=== PATIENT | female | born 1945 | race Caucasian/White ===

== ENCOUNTER → 2016-05-16 | Outpatient (CLI) | payer MEDICARE | END | disposition home or self-care (01) | LOC: LABWHC1 14:18 | PROVIDERS: ATTEND Ophthalmology | DX: N19 Unspecified kidney failure (principal) | CPT/HCPCS: 36415; 82565; 84520 ==

== ENCOUNTER → 2016-05-25 | Outpatient (CLI) | payer MEDICARE ==
--- NOTE | 2016-05-25 08:45 | MR ---
MR brain with and without contrast HISTORY: Visual field defect, tremors Multiplanar multisequence and postcontrast images obtained through the brain small [id number] imag ing through the sella turcica following 20 cc MultiHance IV. No comparisons There are inflammatory change, possible mucus retention cyst within the maxillary sinus. The orbits s how symmetric appearance. The pituitary is not enlarged. No abnormal enhancement is evident. Scattere d hyperintensities present within deep white matter, periventricular region mother approximately 5-10 lesions. Cortical atrophy is likely age-related. There is no hemorrhage or hydrocephalus. There is n o restricted diffusion to suggest subacute ischemia. Corpus callosum, cervical medullary junction, ce rebellopontine angles are normal. IMPRESSION: Nonspecific white matter demyelination may be due to chronic small vessel ischemia. Age-r elated atrophy. Sinus disease. No abnormality evident to account for patient's symptoms.
== END | disposition home or self-care (01) ==
LOC: RADMRIMAIN 06:34
PROVIDERS: ATTEND Ophthalmology
DX: R90.82 White matter disease, unspecified (principal); G31.1 Senile degeneration of brain, not elsewhere classified
CPT/HCPCS: 70553; A9577

== ENCOUNTER → 2016-06-19 | Outpatient (CLI) | payer MEDICARE ==
[2016-06-19 14:24] LABS: Basophils % (A) 1 %; CH 31.5; CHCM 35.5; Eosinophils # (A) 0.2 k/uL (0-0.7); Eosinophils % (A) 4 %; HCT 38.7 % (34.0-46.0); HDW 2.63; HGB 13.5 gm/dL (11.4-16.0); Luc # (Auto) 0.11; Luc % (Auto) 3; Lymphocytes # (A) 0.6 k/uL (1.0-4.8); Lymphocytes % (A) 15 %; MCH 31.2 pg (25.0-35.0); Mean Platelet Volume 6.7; Monocytes # (A) 0.3 k/uL (0-1.0); Monocytes % (A) 9 %; Neutrophils # (A) 2.5 k/uL (1.3-7.7); Neutrophils % (A) 68 %; RBC 4.35 m/uL (3.80-5.40); RDW 13.5 % (11.5-15.5); WBC 3.7 k/uL (3.8-10.6); WBC (Perox) 3.55
[2016-06-19 14:39] LABS: ALT 27 U/L (9-52); AST 12 U/L (14-36); Alkaline Phosphatase 89 U/L (38-126); Anion Gap 12 mmol/L; Blood Urea Nitrogen 20 mg/dL (7-17); Calcium 9.5 mg/dL (8.4-10.2); Carbon Dioxide 25 mmol/L (22-30); Chloride 101 mmol/L (98-107); Glucose 93 mg/dL (74-99); Non-African American GFR(MDRD) >60 (>60 ml/min/1.73 sqM); Rheumatoid Factor, Qnt <9 IU/mL (<12); Sodium 138 mmol/L (137-145); Total Bilirubin 0.5 mg/dL (0.2-1.3); Total Protein 7.2 g/dL (6.3-8.2)
[2016-06-19 15:06] LABS: Erythrocyte Sedimentation Rate 22 mm/hr (0-20)
[2016-06-19 20:07] LABS: ANA w/Reflex to Titer NEGATIVE (NEGATIVE)
[2016-06-19 20:55] LABS: Treponemal Ab Non-Reactive (Non-Reactive)
[2016-06-20 05:34] LABS: Toxoplasma Antibody (IgG) 3.4 IU/mL (<7.2)
[2016-06-20 05:35] LABS: Lyme Antibodies Total(IgG/IgM) 0.28 (<0.90)
[2016-06-22 16:33] LABS: Toxocara Antibodies NEGATIVE
== END | disposition home or self-care (01) ==
LOC: LABWHC1 13:53
PROVIDERS: ATTEND Ophthalmology
DX: H30.0 Focal chorioretinal inflammation (principal); H35.3132 Nonexudative age-related macular degeneration, bilateral, intermediate dry stage
CPT/HCPCS: 36415; 80053; 85025; 85652; 86038; 86140; 86431; 86480; 86618; 86682; 86777; 86778; 86780

== ENCOUNTER → 2016-06-22 | Outpatient (CLI) | payer MEDICARE ==
[2016-06-22 15:31] LABS: Basophils % (A) 1 %; CH 31.1; Eosinophils # (A) 0.2 k/uL (0-0.7); Eosinophils % (A) 5 %; HCT 40.1 % (34.0-46.0); HGB 13.3 gm/dL (11.4-16.0); Luc # (Auto) 0.11; Luc % (Auto) 3; Lymphocytes # (A) 0.6 k/uL (1.0-4.8); Lymphocytes % (A) 16 %; MCH 30.5 pg (25.0-35.0); MCHC 33.2 g/dL (31.0-37.0); MCV 91.8 fL (80.0-100.0); Monocytes # (A) 0.4 k/uL (0-1.0); Monocytes % (A) 9 %; Neutrophils # (A) 2.6 k/uL (1.3-7.7); Neutrophils % (A) 66 %; RBC 4.37 m/uL (3.80-5.40); RDW 13.7 % (11.5-15.5); WBC 3.9 k/uL (3.8-10.6); WBC (Perox) 4.02
[2016-06-22 15:50] LABS: C Reactive Protein 5.5 mg/L (<10.0)
[2016-06-22 16:17] LABS: Erythrocyte Sedimentation Rate 25 mm/hr (0-20)
[2016-06-22 20:07] LABS: ANA w/Reflex to Titer NEGATIVE (NEGATIVE)
== END | disposition home or self-care (01) ==
LOC: LABWHC1 15:11
PROVIDERS: ATTEND Psychiatry & Neurology Neurology
DX: H54.7 Unspecified visual loss (principal); R25.1 Tremor, unspecified
CPT/HCPCS: 36415; 82607; 82746; 85025; 85652; 86038; 86140; 86225

== ENCOUNTER → 2018-02-01 | Outpatient (CLI) | payer MEDICARE ==
--- NOTE | 2018-02-01 13:27 | US ---
EXAMINATION TYPE: US venous doppler duplex LE RT DATE OF EXAM: 02/01/2018 1:14 PM COMPARISON: NONE CLINICAL HISTORY: Right Leg Swelling R22.41. SIDE PERFORMED: Right TECHNIQUE: The lower extremity deep venous system is examined utilizing real time linear array sonog aleyda with graded compression, doppler sonography and color-flow sonography. VESSELS IMAGED: External Iliac Vein (EIV) Common Femoral Vein Deep Femoral Vein Greater Saphenous Vein * Femoral Vein Popliteal Vein Small Saphenous Vein * Proximal Calf Veins (* superficial vessels) Grayscale, color doppler, spectral doppler imaging performed of the deep veins of the right lower ext remity. There is normal flow, compressibility, vascular waveforms. Right Leg: Negative for DVT Preliminary results give to Alvino at Dr. Norton office. IMPRESSION: No sonographic evidence of deep venous thrombosis within the right lower extremity.
== END | disposition home or self-care (01) ==
LOC: RADUSWWP 12:42
PROVIDERS: ATTEND Family Medicine
DX: R22.41 Localized swelling, mass and lump, right lower limb (principal)

== ENCOUNTER → 2019-03-14 | Outpatient (CLI) | payer MEDICARE ==
--- NOTE | 2019-03-16 17:34 | XR ---
EXAMINATION TYPE: XR forearm 2 views LT, XR wrist complete 4 views LT DATE OF EXAM: 03/14/2019 COMPARISON: NONE HISTORY: 73-year-old female left wrist pain after recent fall FINDINGS: Forearm: There is elevation of the anterior fat pad of the elbow. No discrete fracture seen at the elbow on th tristin 2 views of the forearm. No acute fracture apparent of the radial or ulnar shaft. Wrist: Slight negative ulnar variance. TFC and some synovial calcifications are noted. Moderate to severe de generative change first CMC and triscaphe joints. There may be some ulnar-sided soft tissue swelling. No acute fracture, subluxation, dislocation is seen. IMPRESSION: 1. Forearm: Elbow joint effusion which may be an indicator of an occult underlying injury. Correlate for any localizing pain at the elbow. Dedicated views as indicated for further assessment. 2. 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 Some TFC calcifications maybe idiopathic or could reflect CPPD. Soft tissue swelling without acute osseous abnormality seen.
== END | disposition home or self-care (01) ==
LOC: RADXRMAIN 15:52
PROVIDERS: ATTEND Family Medicine
DX: M19.032 Primary osteoarthritis, left wrist (principal); M25.422 Effusion, left elbow; M79.602 Pain in left arm

== ENCOUNTER → 2019-12-18 | Outpatient (CLI) | payer MEDICARE | END | disposition home or self-care (01) | LOC: LABWHC1 13:12 | PROVIDERS: ATTEND Ophthalmology | DX: M31.6 Other giant cell arteritis (principal) | CPT/HCPCS: 36415; 85652; 86140 ==

== ENCOUNTER → 2020-11-21 | Outpatient (CLI) | payer MEDICARE ==
--- NOTE | 2020-11-22 03:35 | MR ---
EXAMINATION TYPE: MR lumbar spine wo con DATE OF EXAM: 11/21/2020 COMPARISON: None HISTORY: No prior, low back pain, limited mobility, frequent falls Images obtained from T12 to S3 vertebra without contrast. The lumbar vertebra have fairly normal alignment. Disc spaces are fairly normal. There is no compress ion fracture. There is a few millimeter anterior subluxation of L4 in relation to L5. There is no molly dence of focal bone destruction. There is mild hypertrophic facet arthropathy throughout the lumbar s pine. The lumbar neural foramina are fairly well-maintained. There is no lumbar paraspinal mass. The sacroiliac joints appear intact. IMPRESSION: There is a minor degenerative first-degree L4-5 spondylolisthesis. Mild multilevel degenerative disc changes. No fracture seen. No significant spinal stenosis. No fracture.
== END | disposition home or self-care (01) ==
LOC: RADMRIMAIN 13:49
PROVIDERS: ATTEND Family Medicine
DX: M43.16 Spondylolisthesis, lumbar region (principal); M47.816 Spondylosis without myelopathy or radiculopathy, lumbar region; R29.6 Repeated falls
CPT/HCPCS: 72148

== ENCOUNTER → 2022-07-06 | Outpatient (CLI) | payer MEDICARE ==
--- NOTE | 2022-07-06 19:49 | XR ---
EXAMINATION TYPE: XR cervical spine 4 views limited DATE OF EXAM: 07/06/2022 Comparison: None Clinical History: 76-year-old female M54.2 cervicalgia Findings: Degenerative change at the C1 dens articulation. No predental space widening or prevertebral soft tis landen swelling. Mild multilevel degenerative disc disease. Alignment appears maintained on the swimmer' s view. Multilevel hypertrophic facet and uncovertebral joint arthropathy is present. Impression: Multilevel facet and uncovertebral joint arthropathy. Mild multilevel disc disease. No malalignment s een.
== END | disposition home or self-care (01) ==
LOC: RADXRMAIN 13:29
PROVIDERS: ATTEND Family Medicine
DX: M50.30 Other cervical disc degeneration, unspecified cervical region (principal); M47.812 Spondylosis without myelopathy or radiculopathy, cervical region
CPT/HCPCS: 72040

== ENCOUNTER 2022-07-11 15:24 | Emergency (ER) | payer MEDICARE ==
--- NOTE | 2022-07-11 16:15 | ED ---
Fall HPI - General Chief Complaint: Fall Stated Complaint: fall Time Seen by Provider: 07/11/22 15:38 Source: patient, EMS Mode of arrival: EMS - History of Present Illness Initial Comments: This patient is a 76-year-old woman who arrives to have evaluation after she had a fall. The patient states that she was attempting to leave her home. She has a porch that has approximate 4 steps down to the ground. She states that she usually uses a walker to walk but does not use it to go downstairs. She lost balance and pitched down the stairs. She states she was not able to get up and was on the grounds between 1 and 2 hours. She complains of pain to the mid and lower back. She does not believe she lost consciousness. The patient was found to have fever on scene by EMS. She does acknowledge having a little bit of cough with clear sputum. She states that her daughter recently had similar and was given course of antibiotic and steroid, which improved the symptoms. MD Complaint: fall Onset/Timin -: hour(s) Fall From: down stairs (#) (4) When Fall Occurred: 1-3 hours REVENUE LIAISON Fall Witnessed: no Place Fall Occurred: home Loss of Consciousness: none Prolonged Down Time?: hour(s) (2) Symptoms Prior to Fall: none Location: back Severity: moderate Quality: aching Context: tripped/slipped - Related Data Home Medications Medication Instructions Recorded Confirmed Atenolol/Chlorthalidone [Tenoretic 1 tab PO DAILY 01/19/14 07/11/22 100 Tablet] Gabapentin [Neurontin] 800 mg PO QID 01/19/14 07/11/22 Levothyroxine Sodium [Levoxyl] 175 mcg PO DAILY 01/19/14 07/11/22 Primidone [Mysoline] 50 mg PO DIRECTED 01/19/14 07/11/22 Desvenlafaxine [Pristiq ER] 100 mg PO DAILY 07/11/22 07/11/22 Famotidine [Pepcid] 20 mg PO DAILY 07/11/22 07/11/22 Folic Acid 1 mg PO DAILY 07/11/22 07/11/22 Furosemide [Lasix] 20 mg PO DIRECTED 07/11/22 07/11/22 Pravastatin Sodium [Pravachol] 20 mg PO HS 07/11/22 07/11/22 Topiramate [Topamax] 50 mg PO TID 07/11/22 07/11/22 amLODIPine [Norvasc] 2.5 mg PO DIRECTED 07/11/22 07/11/22 oxyCODONE HCL [oxyCODONE HCL (IR)] 15 mg PO TID 07/11/22 07/11/22 oxyCODONE HCL [oxyCODONE HCL (IR)] 30 mg PO BID PRN 07/11/22 07/11/22 Previous Rx's Medication Instructions Recorded Azithromycin [Zithromax] 0 mg PO DIRECTED #6 tab 07/11/22 predniSONE [Deltasone] 20 mg PO BID #8 tab 07/11/22 Allergies Allergy/AdvReac Type Severity Reaction Status Date / Time ibuprofen [From Motrin] Allergy Anaphylaxis Verified 07/11/22 15:37 pneumococcal vaccine Allergy Nausea & Verified 07/11/22 15:37 Vomiting Review of Systems ROS Statement: Those systems with pertinent positive or pertinent negative responses have been documented in the HPI. ROS Other: All systems not noted in ROS Statement are negative. Constitutional: Reports: weakness (Generalized) Eyes: Denies: vision change ENT: Denies: epistaxis Respiratory: Reports: cough. Denies: dyspnea, hemoptysis Cardiovascular: Denies: chest pain, palpitations, syncope Gastrointestinal: Denies: abdominal pain, vomiting, diarrhea Genitourinary: Denies: dysuria, hematuria Musculoskeletal: Reports: as per HPI, back pain. Denies: arthralgia Skin: Denies: rash Neurological: Denies: headache, weakness, numbness, confusion Past Medical History Past Medical History: Hypertension Additional Past Medical History / Comment(s): spinal stenosis, arthritis, essential tremors History of Any Multi-Drug Resistant Organisms: None Reported Past Surgical History: Adenoidectomy, Appendectomy, Hysterectomy, Tonsillectomy Additional Past Surgical History / Comment(s): bilateral hip replacement. bowel resection, Past Anesthesia/Blood Transfusion Reactions: No Reported Reaction Past Psychological History: No Psychological Hx Reported Past Alcohol Use History: Occasional Past Drug Use History: None Reported - Past Family History Mother Family Medical History: No Reported History General Exam General appearance: alert, in no apparent distress Head exam: Present: atraumatic, normocephalic Eye exam: Present: normal appearance. Absent: scleral icterus, conjunctival injection ENT exam: Present: normal oropharynx Neck exam: Present: normal inspection, other (Cervical collar). Absent: tenderness Respiratory exam: Present: normal lung sounds bilaterally. Absent: respiratory distress, wheezes, rales, rhonchi, stridor, chest wall tenderness, accessory muscle use Cardiovascular Exam: Present: regular rate, normal rhythm, normal heart sounds. Absent: systolic murmur, diastolic murmur, rubs, gallop GI/Abdominal exam: Present: soft. Absent: distended, tenderness, guarding, rebound, rigid, mass Extremities exam: Present: normal inspection, normal capillary refill. Absent: pedal edema, calf tenderness Back exam: Present: normal inspection, vertebral tenderness. Absent: CVA tenderness (R), CVA tenderness (L) Neurological exam: Present: alert, oriented X3. Absent: motor sensory deficit Skin exam: Present: warm, dry, normal color, abrasion (Right elbow). Absent: rash Course Vital Signs 07/11/22 07/11/22 15:26 18:55 Temperature 99.7 F H 99.5 F Pulse Rate 68 72 Respiratory 16 18 Rate Blood Pressure 115/62 148/78 O2 Sat by Pulse 92 L 95 Oximetry Medical Decision Making - Medical Decision Making This patient is 76-year-old woman here to have evaluation after she had fallen down 4 stairs. Patient also found to have fever here. The patient not found to have acute spine injury. She is feeling better and would like to go home. I explained that we were still attempting to localize for fever, she stated that she really didn't want to stay to provide urine/chest x-ray. She would like to go home with some treatment for the bronchitis symptoms that she has had. Emphasized that she must return should she not begin to show rapid improvement or if there is any worsening at all. We discussed appropriate further care and follow-up as well as return parameters. The patient did have computed tomography scan of the brain and C-spine that I interpreted as being negative for acute bony injury and no intracranial hemorrhage. The patient had CT of the thoracic and lumbar spine which I interpreted as being negative for acute fracture Was pt. sent in by a medical professional or institution (, PA, DISPERSION MIXER, urgent care, hospital, or snf...) When possible be specific @ -[No] Did you speak to anyone other than the patient for history (EMS, parent, family, police, friend...)? What history was obtained from this source @ -[No] Did you review nursing and triage notes (agree or disagree)? Why? @ -[I reviewed and agree with nursing and triage notes] Were old charts reviewed (outside hosp., previous admission, EMS record, old EKG, old radiological studies, urgent care reports/EKG's, snf records)? Report findings @ -[No old charts were reviewed] Differential Diagnosis (chest pain, altered mental status, abdominal pain women, abdominal pain men, vaginal bleeding, weakness, fever, dyspnea, syncope, headache, dizziness, GI bleed, back pain, seizure, CVA, palpatations, mental health, musculoskeletal)? @ -Differential Fever: Pneumonia, viral URI, endocarditis, myocarditis, pericarditis, otitis, sinusitis, peritonsillar Abscess, retropharyngeal Abscess, epiglottitis, peritonitis, appendicitis, Giselle cystitis, diverticulitis, hepatitis, colitis, UTI, PID, TOA, pyelonephritis, prostatitis, epididymitis, meningitis, encephalitis, pulmonary embolism, CVA, thyroid storm, pancreatitis, adrenal crisis, cavernous sinus thrombosis, this is not meant to be an all-inclusive list. Differential Back Pain: Strain, zoster, cauda equina syndrome, epidural abscess, vertebral osteomyelitis, discitis, fracture, subluxation, disc herniation, DJD, spinal stenosis, dissection, AAA, pancreatitis, peptic ulcer disease, pyelonephritis, kidney stone, this is not meant to be an all-inclusive list. EKG interpreted by me (3pts min.). @ -[As above] X-rays interpreted by me (1pt min.). @ -[None done] CT interpreted by me (1pt min.). @ -[As above U/S interpreted by me (1pt. min.). @ -[None done] What testing was considered but not performed or refused? (CT, X-rays, U/S, labs)? Why? @ -[None] What meds were considered but not given or refused? Why? @ -[None] Did you discuss the management of the patient with other professionals (professionals i.e. , PA, DISPERSION MIXER, lab, RT, psych nurse, manager social media, reliability specialist, teacher, aeronautical engineering officer, assistant case manager)? Give summary @ -[No] Was smoking cessation discussed for >3mins.? @ -[No] Was critical care preformed (if so, how long)? @ -[No] Were there social determinants of health that impacted care today? How? (Homelessness, low income, unemployed, alcoholism, drug addiction, transportation, low edu. Level, literacy, decrease access to med. care, [facility], rehab)? @ -[No] Was there de-escalation of care discussed even if they declined (Discuss DNR or withdrawal of care, Hospice)? DNR status @ -[No] What co-morbidities impacted this encounter? (DM, HTN, Smoking, COPD, CAD, Cancer, CVA, ARF, Chemo, Hep., AIDS, mental health diagnosis, sleep apnea, morbid obesity)? @ -[None] Was patient admitted / discharged? Hospital course, mention meds given and route, prescriptions, significant lab abnormalities, going to OR and other pertinent info. @ -[See above Undiagnosed new problem with uncertain prognosis? @ -[No] Drug Therapy requiring intensive monitoring for toxicity (Heparin, Nitro, Insulin, Cardizem)? @ -[No] Were any procedures done? @ -[No] Diagnosis/symptom? @ -[Acute fall Acute back pain Acute bronchitis Fever Acute, or Chronic, or Acute on Chronic? @ -[Acute Uncomplicated (without systemic symptoms) or Complicated (systemic symptoms)? @ -[Uncomplicated Side effects of treatment? @ -[No] Exacerbation, Progression, or Severe Exacerbation? @ -[No] Poses a threat to life or bodily function? How? (Chest pain, [place], [place], pneumonia, PE, COPD, DKA, ARF, appy, cholecystitis, CVA, Diverticulitis, Homicidal, Suicidal, threat to staff... and all critical care pts) @ -[Undetermined - Lab Data Result diagrams: 07/11/22 16:18 07/11/22 16:18 Lab Results 07/11/22 07/11/22 07/11/22 Range/Units 16:18 16:18 16:18 WBC 3.0 L (3.8-10.6) k/uL RBC 4.37 (3.80-5.40) m/uL Hgb 13.6 (11.4-16.0) gm/dL Hct 39.6 (34.0-46.0) % MCV 90.6 (80.0-100.0) fL MCH 31.2 (25.0-35.0) pg MCHC 34.4 (31.0-37.0) g/dL RDW 14.7 (11.5-15.5) % Plt Count 166 (150-450) k/uL MPV 7.5 Neutrophils % 78 % Lymphocytes % 10 % Monocytes % 7 % Eosinophils % 3 % Basophils % 0 % Neutrophils # 2.3 (1.3-7.7) k/uL Lymphocytes # 0.3 L (1.0-4.8) k/uL Monocytes # 0.2 (0-1.0) k/uL Eosinophils # 0.1 (0-0.7) k/uL Basophils # 0.0 (0-0.2) k/uL Sodium 136 L (137-145) mmol/L Potassium 3.5 (3.5-5.1) mmol/L Chloride 98 (98-107) mmol/L Carbon Dioxide 29 (22-30) mmol/L Anion Gap 9 mmol/L BUN 17 (7-17) mg/dL Creatinine 0.64 (0.52-1.04) mg/dL Est GFR (CKD-EPI)AfAm >90 (>60 ml/min/1.73 sqM) Est GFR (CKD-EPI)NonAf 87 (>60 ml/min/1.73 sqM) Glucose 105 H (74-99) mg/dL Calcium 8.4 (8.4-10.2) mg/dL Total Bilirubin 0.6 (0.2-1.3) mg/dL AST 22 (14-36) U/L ALT 19 (4-34) U/L Alkaline Phosphatase 82 (38-126) U/L Troponin I <0.012 (0.000-0.034) ng/mL Total Protein 6.7 (6.3-8.2) g/dL Albumin 3.8 (3.5-5.0) g/dL - EKG Data -: EKG Interpreted by [facility] EKG shows normal: sinus rhythm, axis (Normal), intervals (Normal), QRS complexes (Normal), ST-T waves (Normal) Rate: normal (Rate 65 bpm) Disposition Clinical Impression: Fall, Bronchitis Disposition: HOME SELF-CARE Condition: Fair Instructions (If sedation given, give patient instructions): Acute Bronchitis (ED), Fall Prevention (ED) Prescriptions: predniSONE [Deltasone] 20 mg PO BID #8 tab Azithromycin [Zithromax] 0 mg PO DIRECTED #6 tab Is patient prescribed a controlled substance at d/c from ED?: No Referrals: Edgardo Wadsworth DO [Primary Care Provider] - 1-2 days
[2022-07-11 16:30] LABS: Basophils % (A) 0 %; Eosinophils # (A) 0.1 k/uL (0-0.7); Eosinophils % (A) 3 %; HCT 39.6 % (34.0-46.0); HGB 13.6 gm/dL (11.4-16.0); Lymphocytes # (A) 0.3 k/uL (1.0-4.8); Lymphocytes % (A) 10 %; MCH 31.2 pg (25.0-35.0); MCHC 34.4 g/dL (31.0-37.0); MCV 90.6 fL (80.0-100.0); Mean Platelet Volume 7.5; Monocytes # (A) 0.2 k/uL (0-1.0); Monocytes % (A) 7 %; Neutrophils # (A) 2.3 k/uL (1.3-7.7); Neutrophils % (A) 78 %; Platelet Count 166 k/uL (150-450); RBC 4.37 m/uL (3.80-5.40); RDW 14.7 % (11.5-15.5)
[2022-07-11 16:55] LABS: ALT 19 U/L (4-34); AST 22 U/L (14-36); African American GFR (CKD) >90 (>60 ml/min/1.73 sqM); Albumin 3.8 g/dL (3.5-5.0); Alkaline Phosphatase 82 U/L (38-126); Anion Gap 9 mmol/L; Blood Urea Nitrogen 17 mg/dL (7-17); Calcium 8.4 mg/dL (8.4-10.2); Carbon Dioxide 29 mmol/L (22-30); Chloride 98 mmol/L (98-107); Non-African American GFR(CKD) 87 (>60 ml/min/1.73 sqM); Potassium 3.5 mmol/L (3.5-5.1); Sodium 136 mmol/L (137-145); Total Bilirubin 0.6 mg/dL (0.2-1.3); Total Protein 6.7 g/dL (6.3-8.2)
--- NOTE | 2022-07-11 16:56 | CT ---
EXAMINATION TYPE: CT brain brenda wo con DATE OF EXAM: 07/11/2022 COMPARISON: HISTORY: fall CT DLP: 1282.4 mGycm, Automated exposure control for dose reduction was used. CONTRAST: Patient injected with mL of . CT of the brain is performed utilizing 3 mm thick sections through the posterior fossa and 3 mm thick sections through the remaining calvarium. Study is performed within 24 hours of arrival to the hospital. No abnormal hyperdensity is present to suggest an acute intracranial hemorrhage. No mass lesion is evident. No acute infarcts are evident. Ventricles and sulci are appropriate for the patient age. Mucosal thickening is through the maxillary sinuses. Some mucosal thickening within ethmoid air cells . Remaining paranasal sinuses and mastoid air cells are clear. IMPRESSIONS: 1. No acute intracranial process. Follow-up MRI can be performed as clinically indicated. CT cervical spine. COMPARISON: None CT of the cervical spine is performed in the axial plane at 2 mm thick sections. Reconstructed image s in the coronal, and sagittal plane are reviewed on the computer. No acute fractures are evident. Vertebral body alignment is normal. There is loss of disc height present posteriorly at C5-6 and diffusely through C6-7 and C7-T1. Vacuum disc phenomenon is present C6-7. Posterior endplate spurring is present C5-6 and C6-7. Vertebral body heights are preserved. No spinal canal stenosis is evident. Uncovertebral joint hypertrophy is present C4-5 with mild bilateral foraminal stenosis. Moderate bila teral foraminal stenosis is present C5-6 from uncovertebral joint hypertrophy. Uncovertebral joint hy pertrophy at C6-7 causes moderate bilateral foraminal stenosis. 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 Degenerative disc changes within the mid and lower cervical spine. Posterior endplate spurring is present C5-6 C6-7 without spinal canal stenosis. 2. Uncovertebral joint hypertrophy with bilateral foraminal stenosis C5-6 C6-7. 3. No acute osseous abnormality cervical spine
[2022-07-11 17:04] LABS: Glucose 105 mg/dL (74-99)
--- NOTE | 2022-07-11 17:22 | CT ---
EXAMINATION TYPE: CT thor lumbar spine wo con DATE OF EXAM: 07/11/2022 COMPARISON: None HISTORY: fall, back pain CT DLP: 1210.8 mGycm Automated exposure control for dose reduction was used. Contrast: None Technique: Axial images 3 mm thick sections. Reconstructed images in the coronal and sagittal plane. 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 L1-2: Broad-based disc bulge is present with anterior thecal sac flattening. No spinal canal stenosis present. Facet hypertrophy is contributing to lateral canal stenosis. Some foraminal narrowing is pr esent. L2-3: Facet hypertrophy is present. No spinal canal stenosis or neural foraminal stenosis. L3-4: Broad-based disc bulge is moderate anterior thecal sac compression. Marked facet hypertrophy is present with posterior lateral thecal sac compression. This contributing to spinal canal stenosis th rough this level. L4-5: Broad-based disc bulge is mild anterior thecal sac compression. Marked facet hypertrophy is pre sent. Severe bilateral foraminal stenosis is present. No AP spinal canal stenosis present. There additional levels of facet hypertrophy with lesser degree of thecal sac compression. No additio nal stenosis is evident. There is diffuse loss of disc height through the upper and mid thoracic spine. Some anterior vertebra l body spurring is present. There is some exaggeration of the thoracic kyphosis. IMPRESSION: 1. SPINAL CANAL STENOSIS SECONDARY TO MARKED FACET HYPERTROPHY AT THE L3-4 LEVEL. THIS IS COMPLICATED BY MODERATE DISC BULGING. 2. FACET HYPERTROPHY CONTRIBUTING TO LATERAL CANAL STENOSIS AT THE L1-2 LEVEL. 3. MULTILEVEL DEGENERATIVE DISC CHANGES WITHIN THE THORACIC SPINE. NO SPINAL CANAL STENOSIS IS PRESEN T. 4. FORAMINAL STENOSIS MOST NOTABLY L4-5. 5. NO ACUTE OSSEOUS ABNORMALITY EVIDENT.
[2022-07-11] MEDS ORDERED: AZITHROMYCIN 500 MG TAB PO STA (18:38)
[2022-07-11 19:11] VITALS: BP 148/78; PULSE 72; RESP 18; TEMP 99.5
== END 2022-07-11 18:55 | disposition home or self-care (01) ==
LOC: EC 15:24
DX: J40 Bronchitis, not specified as acute or chronic (principal); M54.50 Low back pain, unspecified; M54.6 Pain in thoracic spine; I10 Essential (primary) hypertension; Z88.6 Allergy status to analgesic agent; Z88.7 Allergy status to serum and vaccine; Z79.899 Other long term (current) drug therapy; W10.9XXA Fall (on) (from) unspecified stairs and steps, initial encounter; Y92.009 Unspecified place in unspecified non-institutional (private) residence as the place of occurrence of the external cause
CPT/HCPCS: 36415; 70450; 72125; 72128; 72131; 80053; 84484; 85025; 93005; 99285

== ENCOUNTER 2023-01-19 20:37 | Emergency (ER) | payer MEDICARE ==
--- NOTE | 2023-01-19 22:13 | ED ---
General Adult HPI <Rinku Stauffer - Last Filed: 01/20/23 08:59> - General Source: patient, EMS Mode of arrival: EMS - History of Present Illness Onset/Timin -: days(s) Severity scale (1-10): 0 Consistency: constant Improves with: rest Worsens with: movement Associated Symptoms: weakness Treatments Prior to Arrival: none <Jn Calderon - Last Filed: 01/29/23 07:51> - General Chief complaint: Fall Stated complaint: Fall Time Seen by Provider: 01/19/23 21:13 - History of Present Illness Initial comments: 's patient is 77-year-old woman arrives by ambulance to be evaluated for generalized weakness and feeling dizzy. The patient states this is been going on about 3 days. She has fallen a few times at home, but denies any injury. The patient states that her family felt she needed to be checked. They called the ambulance. She was at [place]. [place] She states that she had seen the clinic and was diagnosed with urinary tract infection but she continues to be weak and off balance. Patient denies focal weakness. (Jn Calderon) - Related Data Home Medications Medication Instructions Recorded Confirmed Atenolol/Chlorthalidone [Tenoretic 1 tab PO DAILY 01/19/14 07/11/22 100 Tablet] Gabapentin [Neurontin] 800 mg PO QID 01/19/14 07/11/22 Levothyroxine Sodium [Levoxyl] 175 mcg PO DAILY 01/19/14 07/11/22 Primidone [Mysoline] 50 mg PO DIRECTED 01/19/14 07/11/22 Desvenlafaxine [Pristiq ER] 100 mg PO DAILY 07/11/22 07/11/22 Famotidine [Pepcid] 20 mg PO DAILY 07/11/22 07/11/22 Folic Acid 1 mg PO DAILY 07/11/22 07/11/22 Furosemide [Lasix] 20 mg PO DIRECTED 07/11/22 07/11/22 Pravastatin Sodium [Pravachol] 20 mg PO HS 07/11/22 07/11/22 Topiramate [Topamax] 50 mg PO TID 07/11/22 07/11/22 amLODIPine [Norvasc] 2.5 mg PO DIRECTED 07/11/22 07/11/22 oxyCODONE HCL [oxyCODONE HCL (IR)] 15 mg PO TID 07/11/22 07/11/22 oxyCODONE HCL [oxyCODONE HCL (IR)] 30 mg PO BID PRN 07/11/22 07/11/22 Previous Rx's Medication Instructions Recorded Azithromycin [Zithromax] 0 mg PO DIRECTED #6 tab 07/11/22 predniSONE [Deltasone] 20 mg PO BID #8 tab 07/11/22 Allergies Allergy/AdvReac Type Severity Reaction Status Date / Time ibuprofen [From Motrin] Allergy Anaphylaxis Verified 01/19/23 20:47 pneumococcal vaccine Allergy Nausea & Verified 01/19/23 20:47 Vomiting Review of Systems ROS Other: All systems not noted in ROS Statement are negative. <Rinku Stauffer - Last Filed: 01/20/23 08:59> ROS Other: All systems not noted in ROS Statement are negative. Constitutional: Reports: weakness. Denies: fever, chills Respiratory: Denies: cough, dyspnea Cardiovascular: Denies: chest pain, palpitations, edema, syncope Gastrointestinal: Denies: abdominal pain, nausea, vomiting, diarrhea Genitourinary: Reports: frequency. Denies: urgency, dysuria, hematuria Musculoskeletal: Denies: back pain Skin: Denies: rash Neurological: Denies: headache, weakness, numbness <Jn Calderon - Last Filed: 01/29/23 07:51> ROS Statement: Those systems with pertinent positive or pertinent negative responses have been documented in the HPI. Past Medical History Past Medical History: Hypertension Additional Past Medical History / Comment(s): spinal stenosis, arthritis, essential tremors History of Any Multi-Drug Resistant Organisms: None Reported Past Surgical History: Adenoidectomy, Appendectomy, Hysterectomy, Tonsillectomy Additional Past Surgical History / Comment(s): bilateral hip replacement. bowel resection, Past Anesthesia/Blood Transfusion Reactions: No Reported Reaction Past Psychological History: No Psychological Hx Reported Smoking Status: Former smoker Past Alcohol Use History: Occasional Past Drug Use History: None Reported - Past Family History Mother Family Medical History: No Reported History <Jn Calderon - Last Filed: 01/29/23 07:51> General Exam General appearance: alert, in no apparent distress Head exam: Present: atraumatic, normocephalic Eye exam: Present: normal appearance. Absent: scleral icterus, conjunctival injection ENT exam: Present: mucous membranes dry Neck exam: Present: normal inspection, full ROM. Absent: tenderness Respiratory exam: Present: normal lung sounds bilaterally. Absent: respiratory distress, wheezes, rales, rhonchi, stridor Cardiovascular Exam: Present: regular rate, normal rhythm, normal heart sounds. Absent: systolic murmur, diastolic murmur, rubs, gallop GI/Abdominal exam: Present: soft. Absent: distended, tenderness, guarding, rebound, rigid, mass Extremities exam: Present: normal inspection, normal capillary refill. Absent: pedal edema, calf tenderness Back exam: Present: normal inspection. Absent: CVA tenderness (R), CVA tenderness (L) Neurological exam: Present: alert, oriented X3, CN II-XII intact. Absent: motor sensory deficit Skin exam: Present: warm, dry, intact, normal color. Absent: rash <Jn Calderon - Last Filed: 01/29/23 07:51> Course Vital Signs 01/19/23 01/19/23 01/20/23 20:42 22:13 06:32 Temperature 99.3 F 98.2 F Pulse Rate 76 66 64 Respiratory 18 14 18 Rate Blood Pressure 133/58 120/65 139/67 O2 Sat by Pulse 97 97 96 Oximetry EKG Findings - EKG Results: EKG: interpreted by ERMD, sinus rhythm (Rate 68 bpm), normal axis, normal QRS, normal ST/T <Jn Calderon - Last Filed: 01/29/23 07:51> Medical Decision Making - Lab Data Result diagrams: 01/19/23 23:00 01/19/23 23:00 <Rinku Stauffer - Last Filed: 01/20/23 08:59> - Lab Data Result diagrams: 01/19/23 23:00 01/19/23 23:00 <Jn Calderon - Last Filed: 01/29/23 07:51> - Medical Decision Making The patient had chest x-ray which I interpreted as negative for acute i nfiltrate, pneumothorax, congestive heart failure Was pt. sent in by a medical professional or institution (, PA, AIR INTERCEPT CONTROLLER, urgent care, hospital, or fpc...) When possible be specific @ -[No] Did you speak to anyone other than the patient for history (EMS, parent, family, police, friend...)? What history was obtained from this source @ -[No] Did you review nursing and triage notes (agree or disagree)? Why? @ -[I reviewed and agree with nursing and triage notes] Were old charts reviewed (outside hosp., previous admission, EMS record, old EKG, old radiological studies, urgent care reports/EKG's, fpc records)? Report findings @ -[No old charts were reviewed] Differential Diagnosis (chest pain, altered mental status, abdominal pain women, abdominal pain men, vaginal bleeding, weakness, fever, dyspnea, syncope, headache, dizziness, GI bleed, back pain, seizure, CVA, palpatations, mental health, musculoskeletal)? @ -Differential Weakness: Hypoglycemia, shock, sepsis, hyponatremia, anemia, infection, UT, ETOH, adverse medicine reaction, overdose, stroke, this is not meant to be an all-inclusive list. EKG interpreted by me (3pts min.). @ -[As above] X-rays interpreted by me (1pt min.). @ -[I interpreted as above CT interpreted by me (1pt min.). @ -[None done] U/S interpreted by me (1pt. min.). @ -[None done] What testing was considered but not performed or refused? (CT, X-rays, U/S, labs)? Why? @ -[None] What meds were considered but not given or refused? Why? @ -[None] Did you discuss the management of the patient with other professionals (professionals i.e. , PA, AIR INTERCEPT CONTROLLER, lab, RT, psych nurse, pediatric social worker, post office manager, teacher, associate loan officer, immigration case worker)? Give summary @ -[No] Was smoking cessation discussed for >3mins.? @ -[No] Was critical care preformed (if so, how long)? @ -[No] Were there social determinants of health that impacted care today? How? (Homelessness, low income, unemployed, alcoholism, drug addiction, transportation, low edu. Level, literacy, decrease access to med. care, detention, rehab)? @ -[No] Was there de-escalation of care discussed even if they declined (Discuss DNR or withdrawal of care, Hospice)? DNR status @ -[No] What co-morbidities impacted this encounter? (DM, HTN, Smoking, COPD, CAD, Cancer, CVA, ARF, Chemo, Hep., AIDS, mental health diagnosis, sleep apnea, morbid obesity)? @ -[None] Was patient admitted / discharged? Hospital course, mention meds given and route, prescriptions, significant lab abnormalities, going to OR and other pertinent info. @ -[Patient is 77-year-old woman who have evaluation of generalized weakness. She has had frequent falls but no specific injury. The patient was pending urinalysis at time of shift change. Undiagnosed new problem with uncertain prognosis? @ -[No] Drug Therapy requiring intensive monitoring for toxicity (Heparin, Nitro, Insuli n, Cardizem)? @ -[No] Were any procedures done? @ -[No] Diagnosis/symptom? @ -[Acute generalized weakness Acute, or Chronic, or Acute on Chronic? @ -Acute Uncomplicated (without systemic symptoms) or Complicated (systemic symptoms)? @ -Uncomplicated Side effects of treatment? @ -[No] Exacerbation, Progression, or Severe Exacerbation? @ -[No] Poses a threat to life or bodily function? How? (Chest pain, USA, UT, pneumonia, PE, COPD, DKA, ARF, appy, cholecystitis, CVA, Diverticulitis, Homicidal, Suicidal, threat to staff... and all critical care pts) @ -[No] (Jn Calderon) - Lab Data Lab Results 01/19/23 01/19/23 01/19/23 Range/Units 21:55 23:00 23:00 WBC 3.3 L (3.8-10.6) k/uL RBC 3.82 (3.80-5.40) m/uL Hgb 11.6 (11.4-16.0) gm/dL Hct 34.4 (34.0-46.0) % MCV 90.1 (80.0-100.0) fL MCH 30.4 (25.0-35.0) pg MCHC 33.7 (31.0-37.0) g/dL RDW 14.1 (11.5-15.5) % Plt Count 280 (150-450) k/uL MPV 7.3 Neutrophils % 69 % Lymphocytes % 17 % Monocytes % 6 % Eosinophils % 5 % Basophils % 1 % Neutrophils # 2.2 (1.3-7.7) k/uL Lymphocytes # 0.6 L (1.0-4.8) k/uL Monocytes # 0.2 (0-1.0) k/uL Eosinophils # 0.2 (0-0.7) k/uL Basophils # 0.0 (0-0.2) k/uL Sodium 135 L (137-145) mmol/L Potassium 4.1 (3.5-5.1) mmol/L Chloride 102 (98-107) mmol/L Carbon Dioxide 23 (22-30) mmol/L Anion Gap 10 mmol/L BUN 8 (7-17) mg/dL Creatinine 0.54 (0.52-1.04) mg/dL Est GFR (CKD-EPI)AfAm >90 (>60 ml/min/1.73 sqM) Est GFR (CKD-EPI)NonAf >90 (>60 ml/min/1.73 sqM) Glucose 116 H (74-99) mg/dL Plasma Lactic Acid Kenji (0.7-2.0) mmol/L Calcium 8.3 L (8.4-10.2) mg/dL Magnesium 2.1 (1.6-2.3) mg/dL Total Bilirubin 0.3 (0.2-1.3) mg/dL AST 22 (14-36) U/L ALT 22 (4-34) U/L Alkaline Phosphatase 93 (38-126) U/L Troponin I (0.000-0.034) ng/mL Total Protein 6.0 L (6.3-8.2) g/dL Albumin 3.3 L (3.5-5.0) g/dL Urine Color Urine Appearance (Clear) Urine pH (5.0-8.0) Ur Specific [place] (1.001-1.035) Urine Protein (Negative) Urine Glucose (UA) (Negative) Urine Ketones (Negative) Urine Blood (Negative) Urine Nitrite (Negative) Urine Bilirubin (Negative) Urine Urobilinogen (<2.0) mg/dL Ur Leukocyte Esterase (Negative) SARS-CoV-2 (PCR) Not Detected (Not Detectd) 01/19/23 01/20/23 01/20/23 Range/Units 23:00 03:15 08:24 WBC (3.8-10.6) k/uL RBC (3.80-5.40) m/uL Hgb (11.4-16.0) gm/dL Hct (34.0-46.0) % MCV (80.0-100.0) fL MCH (25.0-35.0) pg MCHC (31.0-37.0) g/dL RDW (11.5-15.5) % Plt Count (150-450) k/uL MPV Neutrophils % % Lymphocytes % % Monocytes % % Eosinophils % % Basophils % % Neutrophils # (1.3-7.7) k/uL Lymphocytes # (1.0-4.8) k/uL Monocytes # (0-1.0) k/uL Eosinophils # (0-0.7) k/uL Basophils # (0-0.2) k/uL Sodium (137-145) mmol/L Potassium (3.5-5.1) mmol/L Chloride (98-107) mmol/L Carbon Dioxide (22-30) mmol/L Anion Gap mmol/L BUN (7-17) mg/dL Creatinine (0.52-1.04) mg/dL Est GFR (CKD-EPI)AfAm (>60 ml/min/1.73 sqM) Est GFR (CKD-EPI)NonAf (>60 ml/min/1.73 sqM) Glucose (74-99) mg/dL Plasma Lactic Acid Kenji 1.0 (0.7-2.0) mmol/L Calcium (8.4-10.2) mg/dL Magnesium (1.6-2.3) mg/dL Total Bilirubin (0.2-1.3) mg/dL AST (14-36) U/L ALT (4-34) U/L Alkaline Phosphatase (38-126) U/L Troponin I <0.012 (0.000-0.034) ng/mL Total Protein (6.3-8.2) g/dL Albumin (3.5-5.0) g/dL Urine Color Yellow Urine Appearance Clear (Clear) Urine pH 6.0 (5.0-8.0) Ur Specific [place] 1.010 (1.001-1.035) Urine Protein Negative (Negative) Urine Glucose (UA) Negative (Negative) Urine Ketones Negative (Negative) Urine Blood Negative (Negative) Urine Nitrite Negative (Negative) Urine Bilirubin Negative (Negative) Urine Urobilinogen <2.0 (<2.0) mg/dL Ur Leukocyte Esterase Negative (Negative) SARS-CoV-2 (PCR) (Not Detectd) Disposition Is patient prescribed a controlled substance at d/c from ED?: No Time of Disposition: 08:59 <Rinku Stauffer - Last Filed: 01/20/23 08:59> Is patient prescribed a controlled substance at d/c from ED?: No <Jn Calderon - Last Filed: 01/29/23 07:51> Clinical Impression: Fall Disposition: HOME SELF-CARE Condition: Fair Instructions (If sedation given, give patient instructions): Fall Prevention for Older Adults (ED) Referrals: Edgardo Wadsworth DO [Primary Care Provider] - 1-2 days
--- NOTE | 2023-01-19 22:22 | CT ---
EXAMINATION TYPE: CT brain wo con CT DLP: 1124.8 mGycm, Automated exposure control for dose reduction was used. DATE OF EXAM: 01/19/2023 9:55 PM COMPARISON: CT head 07/11/2022. CLINICAL INDICATION:Female, 77 years old with history of altered mental status, multiple recent falls , ams TECHNIQUE: Brain: Axial CT images of the brain were obtained with coronal and sagittal reformats created and rev iewed. Contrast used: None. Oral contrast used: None. FINDINGS: Extra-axial spaces: No abnormal extra-axial fluid collections. Ventricular system: Appear dilated in proportion to the degree of cerebral atrophy. Cerebral parenchyma: No increased attenuation to suggest acute intraparenchymal hemorrhage. The gra y-white matter interface appears maintained. Mild/moderate generalized brain atrophy. Scattered hyp oattenuating areas are seen within the cerebral white matter, nonspecific but most often seen with ch ronic microvascular ischemic changes; mild/moderate in degree. Cerebellum: No acute abnormality. Mass effect: No evidence of mass effect or midline shift. Intracranial vasculature: Unremarkable Soft tissues: Normal. Visualized orbits: Orbital contents appear grossly intact. There has likely been previous lens surg latosha. Calvarium/osseous structures: No evidence of calvarial fracture. Paranasal sinuses and mastoid air cells: Some frothy secretions noted in the left sphenoid sinus, oth erwise clear. MRI is more sensitive for detecting acute processes such as infarct, and may be considered if clinica lly warranted. IMPRESSION: 1. Mild/moderate generalized brain atrophy, and chronic microvascular ischemic white matter changes. 2. No acute intracranial abnormality. 3. Frothy secretions in the left sphenoid sinus. Correlate for active sinus disease.
[2023-01-19 23:25] LABS: Basophils % (A) 1 %; Eosinophils # (A) 0.2 k/uL (0-0.7); Eosinophils % (A) 5 %; HCT 34.4 % (34.0-46.0); HGB 11.6 gm/dL (11.4-16.0); Lymphocytes # (A) 0.6 k/uL (1.0-4.8); Lymphocytes % (A) 17 %; MCH 30.4 pg (25.0-35.0); MCHC 33.7 g/dL (31.0-37.0); MCV 90.1 fL (80.0-100.0); Mean Platelet Volume 7.3; Monocytes # (A) 0.2 k/uL (0-1.0); Monocytes % (A) 6 %; Neutrophils # (A) 2.2 k/uL (1.3-7.7); Neutrophils % (A) 69 %; Platelet Count 280 k/uL (150-450); RBC 3.82 m/uL (3.80-5.40); RDW 14.1 % (11.5-15.5); WBC 3.3 k/uL (3.8-10.6)
[2023-01-19 23:38] LABS: ALT 22 U/L (4-34); AST 22 U/L (14-36); African American GFR (CKD) >90 (>60 ml/min/1.73 sqM); Albumin 3.3 g/dL (3.5-5.0); Alkaline Phosphatase 93 U/L (38-126); Anion Gap 10 mmol/L; Blood Urea Nitrogen 8 mg/dL (7-17); Calcium 8.3 mg/dL (8.4-10.2); Carbon Dioxide 23 mmol/L (22-30); Chloride 102 mmol/L (98-107); Glucose 116 mg/dL (74-99); Magnesium 2.1 mg/dL (1.6-2.3); Non-African American GFR(CKD) >90 (>60 ml/min/1.73 sqM); Potassium 4.1 mmol/L (3.5-5.1); Sodium 135 mmol/L (137-145); Total Bilirubin 0.3 mg/dL (0.2-1.3)
[2023-01-20] MEDS ORDERED: SODIUM CHLORIDE 0.9% 1,000 ML IV ONE (02:47)
[2023-01-20 06:42] VITALS: BP 139/67; PULSE 64; RESP 18; TEMP 98.2
[2023-01-20 08:37] LABS: Color,Urine Yellow
[2023-01-20 08:38] LABS: Appearance,Urine Clear (Clear); Bilirubin,Urine Negative (Negative); Blood,Urine Negative (Negative); Glucose,Urine (UA) Negative (Negative); Ketones,Urine Negative (Negative); Leukocyte Esterase,Urine Negative (Negative); Nitrite,Urine Negative (Negative); Protein,Urine Negative (Negative); Urobilinogen,Urine <2.0 mg/dL (<2.0)
[2023-01-20] MEDS ORDERED: oxyCODONE ER 15 MG TAB.ER.12H PO STA (08:56)
== END 2023-01-20 09:24 | disposition home or self-care (01) ==
LOC: EC 20:37
DX: R53.1 Weakness (principal); I10 Essential (primary) hypertension; Z87.891 Personal history of nicotine dependence; Z79.899 Other long term (current) drug therapy; Z88.6 Allergy status to analgesic agent; Z88.7 Allergy status to serum and vaccine; Z20.822 Contact with and (suspected) exposure to COVID-19; W18.30XA Fall on same level, unspecified, initial encounter
CPT/HCPCS: 36415; 70450; 80053; 81003; 83605; 83735; 84484; 85025; 87635; 93005; 96360; 99285

== ENCOUNTER 2023-02-10 11:52 | Emergency (ER) | payer MEDICARE ==
--- NOTE | 2023-02-10 12:33 | ED ---
General Adult HPI - General Source: patient, family, RN notes reviewed Mode of arrival: ambulatory Limitations: no limitations <Danita Berry - Last Filed: 02/10/23 12:30> - General Source: RN notes reviewed, old records reviewed Mode of arrival: ambulatory Limitations: no limitations - History of Present Illness -: days(s) Severity scale (1-10): 7 Quality: aching Consistency: constant Improves with: none Worsens with: none Associated Symptoms: denies other symptoms Treatments Prior to Arrival: none <Rick Kearney - Last Filed: 02/19/23 06:06> - General Chief complaint: Extremity Problem,Nontraumatic Stated complaint: Leg swelling Time Seen by Provider: 02/10/23 12:30 - History of Present Illness Initial comments: 77 year old female presents to the emergency department for evaluation of right lower extremity swelling x2 days. Patient states that she has been experiencing pain in that leg recently but noticed the swelling yesterday. Denies redness. (Danita Berry) This is a 77-year-old female to the emergency room today for evaluation of significant right lower Shorty pain and swelling. No prior history of DVT no history of PE no blood thinners. Patient has no chest pain or shortness of breath (Rick Kearney) - Related Data Home Medications Medication Instructions Recorded Confirmed Atenolol/Chlorthalidone [Tenoretic 1 tab PO DAILY 01/19/14 07/11/22 100 Tablet] Gabapentin [Neurontin] 800 mg PO QID 01/19/14 07/11/22 Levothyroxine Sodium [Levoxyl] 175 mcg PO DAILY 01/19/14 07/11/22 Primidone [Mysoline] 50 mg PO DIRECTED 01/19/14 07/11/22 Desvenlafaxine [Pristiq ER] 100 mg PO DAILY 07/11/22 07/11/22 Famotidine [Pepcid] 20 mg PO DAILY 07/11/22 07/11/22 Folic Acid 1 mg PO DAILY 07/11/22 07/11/22 Furosemide [Lasix] 20 mg PO DIRECTED 07/11/22 07/11/22 Pravastatin Sodium [Pravachol] 20 mg PO HS 07/11/22 07/11/22 Topiramate [Topamax] 50 mg PO TID 07/11/22 07/11/22 amLODIPine [Norvasc] 2.5 mg PO DIRECTED 07/11/22 07/11/22 oxyCODONE HCL [oxyCODONE HCL (IR)] 15 mg PO TID 07/11/22 07/11/22 oxyCODONE HCL [oxyCODONE HCL (IR)] 30 mg PO BID PRN 07/11/22 07/11/22 Previous Rx's Medication Instructions Recorded Azithromycin [Zithromax] 0 mg PO DIRECTED #6 tab 07/11/22 predniSONE [Deltasone] 20 mg PO BID #8 tab 07/11/22 Apixaban [Eliquis Starter Pack 5 - 10 mg PO DIRECTED 30 Days 02/10/23 (for VTE)] #1 each Apixaban [Eliquis] 5 mg PO BID #60 tab 02/10/23 Allergies Allergy/AdvReac Type Severity Reaction Status Date / Time ibuprofen [From Motrin] Allergy Anaphylaxis Verified 01/19/23 20:47 pneumococcal vaccine Allergy Nausea & Verified 01/19/23 20:47 Vomiting Review of Systems ROS Other: All systems not noted in ROS Statement are negative. <Danita Berry - Last Filed: 02/10/23 12:30> ROS Other: All systems not noted in ROS Statement are negative. <Rick Kearney - Last Filed: 02/19/23 06:06> ROS Statement: Those systems with pertinent positive or pertinent negative responses have been documented in the HPI. Past Medical History Past Medical History: Hypertension Additional Past Medical History / Comment(s): spinal stenosis, arthritis, essential tremors History of Any Multi-Drug Resistant Organisms: None Reported Past Surgical History: Adenoidectomy, Appendectomy, Hysterectomy, Tonsillectomy Additional Past Surgical History / Comment(s): bilateral hip replacement. bowel resection, Past Anesthesia/Blood Transfusion Reactions: No Reported Reaction Past Psychological History: No Psychological Hx Reported Smoking Status: Former smoker Past Alcohol Use History: Occasional Past Drug Use History: None Reported - Past Family History Mother Family Medical History: No Reported History <Danita Berry - Last Filed: 02/10/23 12:30> General Exam Limitations: no limitations <Danita Berry - Last Filed: 02/10/23 12:30> Limitations: no limitations General appearance: alert, in no apparent distress Head exam: Present: atraumatic, normocephalic, normal inspection Eye exam: Present: normal appearance, PERRL, EOMI. Absent: scleral icterus, conjunctival injection, periorbital swelling ENT exam: Present: normal exam, mucous membranes moist Neck exam: Present: normal inspection. Absent: tenderness, meningismus, lymphadenopathy Respiratory exam: Present: normal lung sounds bilaterally. Absent: respiratory distress, wheezes, rales, rhonchi, stridor Cardiovascular Exam: Present: regular rate, normal rhythm, normal heart sounds. Absent: systolic murmur, diastolic murmur, rubs, gallop, clicks GI/Abdominal exam: Present: soft, normal bowel sounds. Absent: distended, tenderness, guarding, rebound, rigid Extremities exam: Present: normal inspection, full ROM, normal capillary refill. Absent: tenderness, pedal edema, joint swelling, calf tenderness Back exam: Present: normal inspection Neurological exam: Present: alert, oriented X3, CN II-XII intact Psychiatric exam: Present: normal affect, normal mood Skin exam: Present: warm, dry, intact, normal color. Absent: rash <Rick Kearney - Last Filed: 02/19/23 06:06> - General Exam Comments Initial Comments: Visual Physical Exam Vital signs reviewed General: Well-appearing, nontoxic, no acute distress. Head: Normocephalic, atraumatic Eyes: PERRLA, EOMI ENT: Airway patent Chest: Nonlabored breathing Skin: No visual rash, normal skin tone Neuro: Alert and oriented 3 Musculoskeletal: No gross abnormalities (KulkaDanita) Course <Rick Kearney - Last Filed: 02/19/23 06:06> Vital Signs 02/10/23 02/10/23 12:20 15:53 Temperature 98.4 F 98.5 F Pulse Rate 82 97 Respiratory 20 18 Rate Blood Pressure 101/58 117/65 O2 Sat by Pulse 95 95 Oximetry - Reevaluation(s) Reevaluation #1: Medical record is reviewed (Rick Kearney) Reevaluation #2: Patient has no real change in symptoms here in the ER (Rick Kearney) Reevaluation #3: Patient informed results and questions answered (Rick Kearney) Reevaluation #4: 02/10/23 16:12 Was pt. sent in by a medical professional or institution (KUMAR Maza, LOSS PREVENTION OFFICER, urgent care, hospital, or senior living...) When possible be specific @ -no Did you speak to anyone other than the patient for history (EMS, parent, family, police, friend...)? What history was obtained from this source @ -no Did you review nursing and triage notes (agree or disagree)? Why? @ -agree Are old charts reviewed (outside hosp., previous admission, EMS record, old EKG, old radiological studies, urgent care reports/EKG's, senior living records)? Report findings @ -yes Differential Diagnosis (chest pain, altered mental status, abdominal pain women, abdominal pain men, vaginal bleeding, weakness, fever, dyspnea, syncope, headache, dizziness, GI bleed, back pain, seizure, CVA, palpatations, mental health, musculoskeletal)? @ -prior EKG interpreted by me (3pts min.). @ -no X-rays interpreted by me (1pt min.). @ -no CT interpreted by me (1pt min.). @ -no U/S interpreted by me (1pt. min.). @ -yes positive for DVT What testing was considered but not performed or refused? (CT, X-rays, U/S, labs)? Why? @ -none What meds were considered but not given or refused? Why? @ -none Did you discuss the management of the patient with other professionals (professionals i.e. KUMAR Maza, LOSS PREVENTION OFFICER, lab, RT, psych nurse, public health social worker, power transformer assembler, teacher, motorcycle police officer, hospice case manager)? Give summary @ -no Was smoking cessation discussed for >3mins.? @ -no Was critical care preformed (if so, how long)? @ -no Were there social determinants of health that impacted care today? How? (Homelessness, low income, unemployed, alcoholism, drug addiction, transportation, low edu. Level, literacy, decrease access to med. care, longterm, rehab)? @ -none Was there de-escalation of care discussed even if they declined (Discuss DNR or withdrawal of care, Hospice)? DNR status @ -no What co-morbidities impacted this encounter? (DM, HTN, Smoking, COPD, CAD, Cancer, CVA, ARF, Chemo, Hep., AIDS, mental health diagnosis, sleep apnea, morbid obesity)? @ -none Was patient admitted / discharged? Hospital course, mention meds given and route, prescriptions, significant lab abnormalities, going to OR and other pertinent info. @ - 77 female to the emergency department today for evaluation of flank pain positive for DVT. Patient replacement Ahlquist and can be discharged home Discharge Undiagnosed new problem with uncertain prognosis? @ -no Drug Therapy requiring intensive monitoring for toxicity (Heparin, Nitro, Insulin, Cardizem)? @ -no Were any procedures done? @ -no Diagnosis/symptom? @ -DVT right lower extremity Acute, or Chronic, or Acute on Chronic? @ -Acute Uncomplicated (without systemic symptoms) or Complicated (systemic symptoms)? @ -Complicated Side effects of treatment? @ -no Exacerbation, Progression, or Severe Exacerbation? @ -exacerbation Poses a threat to life or bodily function? How? (Chest pain, [place], [place], pneumonia, PE, COPD, DKA, ARF, appy, cholecystitis, CVA, Diverticulitis, Homicidal, Suicidal, threat to staff... and all critical care pts) @ -yes with DVT leading to PE (Rick Kearney) Reevaluation #5: 02/10/23 16:13 Differential Weakness: Hypoglycemia, shock, sepsis, hyponatremia, anemia, infection, [place], ETOH, adverse medicine reaction, overdose, stroke, this is not meant to be an all-inclusive list. (Rick Kearney) Medical Decision Making <Danita Berry - Last Filed: 02/10/23 12:30> - Radiology Data Radiology results: report reviewed (US right lower Shorty positive for DVT), image reviewed <Rick Kearney - Last Filed: 02/19/23 06:06> - Medical Decision Making Quick note preformed by Danita Berry PA-C (Danita Berry) 77 female to the emergency department today for evaluation of flank pain positive for DVT. Patient replacement Ahlquist and can be discharged home (Rick Kearney) Disposition <Danita Berry - Last Filed: 02/10/23 12:30> Is patient prescribed a controlled substance at d/c from ED?: No Time of Disposition: 15:00 <Rick Kearney - Last Filed: 02/19/23 06:06> Clinical Impression: Deep vein thrombosis (DVT) of lower extremity, Right leg DVT, Weakness Disposition: HOME SELF-CARE Condition: Good Instructions (If sedation given, give patient instructions): Deep Vein Thrombosis (ED) Prescriptions: Apixaban [Eliquis] 5 mg PO BID #60 tab Apixaban [Eliquis Starter Pack (for VTE)] 5 - 10 mg PO DIRECTED 30 Days #1 each Referrals: Edgardo Wadsworth DO [Primary Care Provider] - 1-2 days
--- NOTE | 2023-02-10 13:46 | US ---
EXAMINATION TYPE: US venous doppler duplex LE RT DATE OF EXAM: 02/10/2023 1:27 PM COMPARISON: 02/01/18 CLINICAL INDICATION: Female, 77 years old with history of swelling, pain; Pain in entire right leg x weeks. No hx of DVT. SIDE PERFORMED: Right TECHNIQUE: The lower extremity deep venous system is examined utilizing real time linear array sonog aleyda with graded compression, doppler sonography and color-flow sonography. VESSELS IMAGED: Common Femoral Vein Deep Femoral Vein Greater Saphenous Vein * Femoral Vein Popliteal Vein Small Saphenous Vein * Proximal Calf Veins (* superficial vessels) Right Leg: Echoes seen in distal fem vein and entire pop vein. No compression seen in these vessels. There did appear to be flow again in the prox calf veins IMPRESSION: Deep vein to most of the right distal femoral vein and popliteal vein. Findings communicated to Danita Berry on 02/10/2023 1:[address] Rinku Velasco.
[2023-02-10] MEDS ORDERED: APIXABAN 5 MG TAB PO STA (14:51)
[2023-02-10 17:04] VITALS: BP 117/65; PULSE 97; RESP 18; TEMP 98.5
== END 2023-02-10 16:00 | disposition home or self-care (01) ==
LOC: EC 11:52
DX: I82.401 Acute embolism and thrombosis of unspecified deep veins of right lower extremity (principal); R53.1 Weakness; I10 Essential (primary) hypertension; Z87.891 Personal history of nicotine dependence; Z79.899 Other long term (current) drug therapy; Z88.6 Allergy status to analgesic agent; Z88.7 Allergy status to serum and vaccine
CPT/HCPCS: 99284

== ENCOUNTER → 2023-03-01 | Outpatient (CLI) | payer MEDICARE ==
--- NOTE | 2023-03-01 12:47 | CT ---
EXAMINATION TYPE: CT pelvis wo con, CT hip RT wo con DATE OF EXAM: 03/01/2023 COMPARISON: None. HISTORY: Right hip pain. Artificial right hip joint. CT DLP: 677 mGycm Automated exposure control for dose reduction was used. FINDINGS: Metallic prosthesis from bilateral total hip arthroplasty is identified. Position in the right hip is satisfactory. No suspicious surrounding lucency to suggest loosening or infection is identified. Mus catrina bulk in the right thigh is maintained and symmetric to opposite left side. There is suggestion of asymmetric anterior joint effusion or possible fluid collection extending inferiorly from the right femoral head. This measures approximately 10 cm in craniocaudal dimension and abuts the anterior bony margin of the right proximal femur. No concerning pelvic fluid collection. There is moderate fecal prominence in the visualized colon. IMPRESSION: 1. ASYMMETRIC THIN-WALLED FLUID COLLECTION ANTERIOR DEEP RIGHT THIGH. CONSIDER ATTEMPTED PERCUTANEOUS SAMPLING TO FURTHER EVALUATE. 2. MODERATE COLONIC FECAL STASIS OR CONSTIPATION IS NOTED.
== END | disposition home or self-care (01) ==
LOC: RADCTMAIN 11:44
PROVIDERS: ATTEND Orthopaedic Surgery
DX: T84.84XA Pain due to internal orthopedic prosthetic devices, implants and grafts, initial encounter (principal); M25.551 Pain in right hip; Z96.641 Presence of right artificial hip joint
CPT/HCPCS: 72192

== ENCOUNTER → 2023-03-01 | Outpatient (CLI) | payer MEDICARE | END | disposition home or self-care (01) | LOC: LABWHC1 12:22 | PROVIDERS: ATTEND Orthopaedic Surgery | DX: Z96.641 Presence of right artificial hip joint (principal); T84.84XA Pain due to internal orthopedic prosthetic devices, implants and grafts, initial encounter; Y82.9 Unspecified medical devices associated with adverse incidents | CPT/HCPCS: 36415; 85379; 85652; 86140 ==

== ENCOUNTER 2023-03-13 09:10 | Emergency (ER) | payer MEDICARE ==
[2023-03-13 09:19] VITALS: TEMP 97.9
[2023-03-13] MEDS ORDERED: HYDROmorphone 0.5 MG/0.5 ML SYRINGE IVP STA ×2 (09:31→10:09)
[2023-03-13 09:57] LABS: Basophils % (A) 0 %; Eosinophils # (A) 0.1 k/uL (0-0.7); Eosinophils % (A) 1 %; HCT 37.4 % (34.0-46.0); Hypochromasia Slight; Lymphocytes # (A) 0.7 k/uL (1.0-4.8); Lymphocytes % (A) 12 %; MCH 27.8 pg (25.0-35.0); MCHC 32.1 g/dL (31.0-37.0); MCV 86.6 fL (80.0-100.0); Mean Platelet Volume 7.6; Monocytes # (A) 0.4 k/uL (0-1.0); Monocytes % (A) 7 %; Neutrophils # (A) 4.5 k/uL (1.3-7.7); Neutrophils % (A) 78 %; Platelet Count 348 k/uL (150-450); RBC 4.32 m/uL (3.80-5.40); RDW 14.5 % (11.5-15.5); WBC 5.8 k/uL (3.8-10.6)
[2023-03-13 10:13] LABS: Prothrombin Time 11.1 sec (10.0-12.5)
--- NOTE | 2023-03-13 10:15 | XR ---
EXAMINATION TYPE: XR Hip Complete RT DATE OF EXAM: 03/13/2023 CLINICAL HISTORY: pain TECHNIQUE: AP and frogleg views of the right hip are obtained. COMPARISON: None. FINDINGS: Total right hip arthroplasty is in place with dislocation of the femoral head component. No fracture is identified at this time. There may be loosening of the acetabular component. IMPRESSION: 1. As above
[2023-03-13 10:28] LABS: ALT 15 U/L (4-34); AST 16 U/L (14-36); African American GFR (CKD) >90 (>60 ml/min/1.73 sqM); Albumin 3.5 g/dL (3.5-5.0); Alkaline Phosphatase 141 U/L (38-126); Anion Gap 10 mmol/L; Blood Urea Nitrogen 10 mg/dL (7-17); Calcium 9.2 mg/dL (8.4-10.2); Carbon Dioxide 27 mmol/L (22-30); Chloride 99 mmol/L (98-107); Glucose 142 mg/dL (74-99); Non-African American GFR(CKD) >90 (>60 ml/min/1.73 sqM); Potassium 3.8 mmol/L (3.5-5.1); Sodium 136 mmol/L (137-145); Total Bilirubin 0.5 mg/dL (0.2-1.3); Total Protein 6.8 g/dL (6.3-8.2)
[2023-03-13] MEDS ORDERED: PROPOFOL 10 MG/ML 20 ML VIAL IV ONE ×3 (10:57→11:15)
[2023-03-13] MEDS ORDERED: KETAMINE 10 MG/ML 20 ML VIAL IV ONE ×2 (10:57→11:15)
--- NOTE | 2023-03-13 11:24 | ED ---
General Adult HPI - General Chief complaint: Extremity Injury, Lower Stated complaint: fell R hip injury Time Seen by Provider: 03/13/23 09:19 Source: patient, RN notes reviewed, old records reviewed Mode of arrival: wheelchair Limitations: no limitations - History of Present Illness Initial comments: 77-year-old female presents status post fall with severe right hip pain. Patient was scheduled for hip aspiration to rule out infection. She had her t otal hip [place] done in [address] Merritt. She has had chronic issues with this hip. - Related Data Home Medications Medication Instructions Recorded Confirmed Gabapentin [Neurontin] 800 mg PO QID 01/19/14 03/06/23 Levothyroxine Sodium [Levoxyl] 175 mcg PO DAILY 01/19/14 03/06/23 Primidone [Mysoline] 50 mg PO DIRECTED 01/19/14 03/06/23 Desvenlafaxine [Pristiq ER] 100 mg PO DAILY 07/11/22 03/06/23 Folic Acid 1 mg PO DAILY 07/11/22 03/06/23 Pravastatin Sodium [Pravachol] 20 mg PO HS 07/11/22 03/06/23 Topiramate [Topamax] 50 mg PO TID 07/11/22 03/06/23 oxyCODONE HCL [oxyCODONE HCL (IR)] 15 mg PO TID 07/11/22 03/06/23 oxyCODONE HCL [oxyCODONE HCL (IR)] 30 mg PO BID PRN 07/11/22 03/06/23 Metoprolol Tartrate 25 mg PO BID 03/06/23 03/06/23 Previous Rx's Medication Instructions Recorded Apixaban [Eliquis] 5 mg PO BID #60 tab 02/10/23 Allergies Allergy/AdvReac Type Severity Reaction Status Date / Time ibuprofen [From Motrin] Allergy Anaphylaxis Verified 03/06/23 17:21 pneumococcal vaccine Allergy Nausea & Verified 03/06/23 17:21 Vomiting Review of Systems ROS Statement: Those systems with pertinent positive or pertinent negative responses have been documented in the HPI. ROS Other: All systems not noted in ROS Statement are negative. Past Medical History Past Medical History: Hypertension, Osteoarthritis (OA) Additional Past Medical History / Comment(s): spinal stenosis, arthritis, essential tremors History of Any Multi-Drug Resistant Organisms: None Reported Past Surgical History: Adenoidectomy, Appendectomy, Hysterectomy, Tonsillectomy Additional Past Surgical History / Comment(s): bilateral hip replacement. bowel resection Past Anesthesia/Blood Transfusion Reactions: No Reported Reaction Past Psychological History: No Psychological Hx Reported Smoking Status: Former smoker Past Alcohol Use History: Occasional Past Drug Use History: None Reported - Past Family History Mother Family Medical History: No Reported History General Exam Limitations: no limitations General appearance: alert, in no apparent distress Head exam: Present: atraumatic, normocephalic Eye exam: Present: normal appearance, PERRL ENT exam: Present: normal exam Neck exam: Present: normal inspection. Absent: tenderness Respiratory exam: Present: normal lung sounds bilaterally. Absent: respiratory distress, wheezes Cardiovascular Exam: Present: regular rate, normal rhythm GI/Abdominal exam: Present: soft. Absent: distended, tenderness Extremities exam: Present: other (Shortening of the right lower extremity, distal pulses intact). Absent: full ROM, tenderness Neurological exam: Present: alert, oriented X3 Psychiatric exam: Present: normal affect, normal mood Skin exam: Present: warm, dry, intact. Absent: cyanosis, diaphoretic Course Vital Signs 03/13/23 03/13/23 03/13/23 09:12 10:13 10:31 Temperature 97.9 F Pulse Rate 89 74 74 Respiratory 20 18 18 Rate Blood Pressure 124/75 161/71 157/71 O2 Sat by Pulse 96 96 94 L Oximetry 03/13/23 03/13/23 03/13/23 11:12 11:17 11:22 Temperature Pulse Rate 65 70 72 Respiratory 18 10 L 12 Rate Blood Pressure 147/81 155/73 150/69 O2 Sat by Pulse 98 97 99 Oximetry 03/13/23 03/13/23 03/13/23 11:26 11:36 11:50 Temperature Pulse Rate 67 68 63 Respiratory 16 16 17 Rate Blood Pressure 135/65 151/69 147/73 O2 Sat by Pulse 100 99 99 Oximetry 03/13/23 12:05 Temperature Pulse Rate 66 Respiratory 14 Rate Blood Pressure 156/69 O2 Sat by Pulse 97 Oximetry Procedures - [place] Protocol (Time Out) Procedure Performed:: Right hip reduction with moderate conscious sedation Performing Provider: Rinku Stauffer Nurse: Angel Jacques Patient Identification (2 identifiers required): Chart, Verbal, Arm Band, Name, Birthdate, Medical Record Number Patient/Legal Parts Room Assistant has Confirmed: Identity, Site, Procedure, Consent Site: Right Hip Site Marked: Yes Site Verified With Patient/Guardian: Yes Final Confirmation: Procedure, Site, Laterality, Patient Position, Radiographs, Confirmed w/Provider - Orthopedic Joint Reduction Joint #1 Consent Obtained: written consent Side: right Joint Reduction Location: hip Analgesia: procedural sedation Shoulder Technique Used (if applicable): traction/counter-traction Post-Reduction Neuro Exam: intact Post-Reduction Vascular Exam: intact Post Reduction X-Ray Obtained: Yes Post Reduction X-Ray Results: reduced Splint Applied: Yes Patient Tolerated Procedure: well - Procedural Sedation *Procedural Sedation Start Time: 11:12 *Procedural Sedation Stop Time: 11:42 *Risks,benefits, and alternative therapies discussed?: Yes *Patient indicates understanding of risk/benefit discussion?: Yes *Indications: fracture/dislocation reduction *Previous Adverse Reaction to Anesthesia/Sedation?: No * Testing Complete?: No Reason Test Not Complete:: Age > 60 *ASA Class: III *Mallampati Airway Score: 2 Preparation: equipment monitor phototypesetting applied, pulse oximeter, capnometry used, supplemental O2 applied, reversal agents at bedside, suction/airway equipment at bedside Ketamine: IV Ketamine Dose: 35 IV Propofol Dose (mgs): 65 Complications: hypoventilation Interventions: oxygen applied, airway repositioned Patient Tolerated Procedure: well Medical Decision Making - Medical Decision Making Was pt. sent in by a medical professional or institution ([facility], [employer]OV[employer] OPERATOR, urgent care, hospital, or [place] health care facility...) When possible be specific @ -No Did you speak to anyone other than the patient for history (EMS, parent, family, police, friend...)? What history was obtained from this source @ -Patient's daughter Did you review nursing and triage notes (agree or disagree)? Why? @ -I reviewed and agree with nursing and triage notes Were old charts reviewed (outside hosp., previous admission, EMS record, old EKG, old radiological studies, urgent care reports/EKG's, [place] health care facility records)? Report findings @ -No old charts were reviewed Differential Diagnosis (chest pain, altered mental status, abdominal pain women, abdominal pain men, vaginal bleeding, weakness, fever, dyspnea, syncope, headache, dizziness, GI bleed, back pain, seizure, CVA, palpatations, mental health, musculoskeletal)? @ -Differential Musculoskeletal Muscular strain, contusion, ligament sprain, fracture, arthritis, septic arthri tis, bursitis, cellulitis, muscle spasm, nerve compression, DVT, arterial occlusion, herpes zoster, electrolyte abnormality, tumor.... This is not meant to be in all inclusive list EKG interpreted by me (3pts min.). @ -As above X-rays interpreted by me (1pt min.). @ -Initial x-ray of the hip shows dislocation of the right prosthetic hip, postreduction is normal alignment without dislocation. CT interpreted by me (1pt min.). @ -None done U/S interpreted by me (1pt. min.). @ -None done What testing was considered but not performed or refused? (CT, X-rays, U/S, labs)? Why? @ -None What meds were considered but not given or refused? Why? @ -None Did you discuss the management of the patient with other professionals (professionals i.e. , PA, CRY[employer]ITE RECOVERY OPERATOR, lab, RT, psych nurse, elementary school social worker, medical administrator, teacher, department of natural resources officer, disease case manager rn)? Give summary @Dr. Mcghee who is familiar with this patient, did not perform total hip arthroplasty but is working up fluid collection and possible infection Was smoking cessation discussed for >3mins.? @ -No Was critical care preformed (if so, how long)? @ -No Were there social determinants of health that impacted care today? How? (Homelessness, low income, unemployed, alcoholism, drug addiction, transportation, low edu. Level, literacy, decrease access to med. care, care home, rehab)? @ -No Was there de-escalation of care discussed even if they declined (Discuss DNR or withdrawal of care, Hospice)? DNR status @ -No What co-morbidities impacted this encounter? (DM, HTN, Smoking, COPD, CAD, Cancer, CVA, ARF, Chemo, Hep., AIDS, mental health diagnosis, sleep apnea, morbid obesity)? @ -None Was patient admitted / discharged? Hospital course, mention meds given and route, prescriptions, significant lab abnormalities, going to OR and other pert inent info. @ -77-year-old female with severe right hip pain status post fall. Patient has dislocated right hip. This is reduced under procedural sedation. Postreduction x-rays shows reduced prosthetic hip. Patient has normal laboratory testing. Feels 100% better after reduction. Placed in a knee immobilizer. Undiagnosed new problem with uncertain prognosis? @ -No Drug Therapy requiring intensive monitoring for toxicity (Heparin, Nitro, Insulin, Cardizem)? @ -No Were any procedures done? @ -Yes, dislocation reduction and procedural sedation Diagnosis/symptom? @ -[Dislocated right hip Acute, or Chronic, or Acute on Chronic? @ -Default Uncomplicated (without systemic symptoms) or Complicated (systemic symptoms)? @ -Default Side effects of treatment? @ -No Exacerbation, Progression, or Severe Exacerbation? @ -No Poses a threat to life or bodily function? How? (Chest pain, USA, CT, pneumonia, PE, COPD, DKA, ARF, appy, cholecystitis, CVA, Diverticulitis, Homicidal, Suicidal, threat to staff... and all critical care pts) @ -[Low risk - Lab Data Result diagrams: 03/13/23 09:38 03/13/23 09:38 Lab Results 03/13/23 03/13/23 03/13/23 Range/Units 09:38 09:38 09:38 WBC 5.8 (3.8-10.6) k/uL RBC 4.32 (3.80-5.40) m/uL Hgb 12.0 (11.4-16.0) gm/dL Hct 37.4 (34.0-46.0) % MCV 86.6 (80.0-100.0) fL MCH 27.8 (25.0-35.0) pg MCHC 32.1 (31.0-37.0) g/dL RDW 14.5 (11.5-15.5) % Plt Count 348 (150-450) k/uL MPV 7.6 Neutrophils % 78 % Lymphocytes % 12 % Monocytes % 7 % Eosinophils % 1 % Basophils % 0 % Neutrophils # 4.5 (1.3-7.7) k/uL Lymphocytes # 0.7 L (1.0-4.8) k/uL Monocytes # 0.4 (0-1.0) k/uL Eosinophils # 0.1 (0-0.7) k/uL Basophils # 0.0 (0-0.2) k/uL Hypochromasia Slight PT 11.1 (10.0-12.5) sec INR 1.0 (<1.2) APTT 27.0 (22.0-30.0) sec Sodium 136 L (137-145) mmol/L Potassium 3.8 (3.5-5.1) mmol/L Chloride 99 (98-107) mmol/L Carbon Dioxide 27 (22-30) mmol/L Anion Gap 10 mmol/L BUN 10 (7-17) mg/dL Creatinine 0.45 L (0.52-1.04) mg/dL Est GFR (CKD-EPI)AfAm >90 (>60 ml/min/1.73 sqM) Est GFR (CKD-EPI)NonAf >90 (>60 ml/min/1.73 sqM) Glucose 142 H (74-99) mg/dL Calcium 9.2 (8.4-10.2) mg/dL Total Bilirubin 0.5 (0.2-1.3) mg/dL AST 16 (14-36) U/L ALT 15 (4-34) U/L Alkaline Phosphatase 141 H (38-126) U/L Total Protein 6.8 (6.3-8.2) g/dL Albumin 3.5 (3.5-5.0) g/dL Disposition Clinical Impression: Dislocation of hip joint prosthesis Disposition: HOME SELF-CARE Condition: Fair Instructions (If sedation given, give patient instructions): Hip Dislocation (ED) Is patient prescribed a controlled substance at d/c from ED?: No Referrals: Edgardo Wadsworth DO [Primary Care Provider] - 1-2 days Rush Mcghee MD [Medical Doctor] - 1-2 days Time of Disposition: 12:48
--- NOTE | 2023-03-13 11:38 | XR ---
EXAMINATION TYPE: XR Hip Limited RT DATE OF EXAM: 03/13/2023 CLINICAL HISTORY: Postoperative evaluation TECHNIQUE: Single portable view of the right hip was submitted. FINDINGS: Noted are changes of total hip arthroplasty with femoral and acetabular components appearin g well seated. Alignment is anatomic. Postsurgical soft tissue changes are evident. IMPRESSION: Satisfactory postoperative alignment
[2023-03-13 12:40] VITALS: BP 156/69; PULSE 66; RESP 14
== END 2023-03-13 13:10 | disposition home or self-care (01) ==
LOC: EC 09:10
DX: T84.020A Dislocation of internal right hip prosthesis, initial encounter (principal); I10 Essential (primary) hypertension; M19.90 Unspecified osteoarthritis, unspecified site; Z79.899 Other long term (current) drug therapy; Z87.891 Personal history of nicotine dependence; Z88.6 Allergy status to analgesic agent; Z88.7 Allergy status to serum and vaccine; Y79.2 Prosthetic and other implants, materials and accessory orthopedic devices associated with adverse incidents
CPT/HCPCS: 99284; 23650; 99152; 96374; 96376; 36415; 80053; 85025; 85610; 85730; 73501; 73502; J2704; J1170

== ENCOUNTER → 2023-03-13 | Day surgery (SDC) | payer MEDICARE | LOC: RADPROMAIN 08:40 | PROVIDERS: ATTEND Orthopaedic Surgery | DX: Z53.8 Procedure and treatment not carried out for other reasons (principal) ==

== ENCOUNTER 2023-03-14 06:50 | Emergency (ER) | payer MEDICARE ==
[2023-03-14] MEDS: HYDROmorphone 1 MG/ML 1 ML SYRINGE IVP STA ×2 (07:23→11:15)
--- NOTE | 2023-03-14 07:50 | XR ---
EXAMINATION TYPE: XR Hip RT and AP Pelvis DATE OF EXAM: 03/14/2023 CLINICAL HISTORY: pain TECHNIQUE: AP and frogleg views of the right hip are obtained. Single view of the right hip is also submitted. COMPARISON: None. FINDINGS: There is no acute fracture/dislocation evident. Total bilateral hip arthroplasty seen. Bot h arthroplasties appear to be intact at this time. The overlying soft tissue appears unremarkable. IMPRESSION: 1. There is no acute fracture or dislocation. ICD 10 NO FRACTURE, INITIAL EVALUATION
[2023-03-14 08:40] LABS: Basophils % (A) 1 %; Eosinophils % (A) 1 %; HCT 34.1 % (34.0-46.0); HGB 11.4 gm/dL (11.4-16.0); Lymphocytes # (A) 0.2 k/uL (1.0-4.8); Lymphocytes % (A) 5 %; MCH 28.7 pg (25.0-35.0); MCHC 33.4 g/dL (31.0-37.0); MCV 85.9 fL (80.0-100.0); Mean Platelet Volume 7.2; Monocytes # (A) 0.2 k/uL (0-1.0); Monocytes % (A) 5 %; Neutrophils # (A) 3.3 k/uL (1.3-7.7); Neutrophils % (A) 88 %; Platelet Count 287 k/uL (150-450); RBC 3.97 m/uL (3.80-5.40); RDW 14.7 % (11.5-15.5); WBC 3.7 k/uL (3.8-10.6)
--- NOTE | 2023-03-14 09:48 | ED ---
General Adult HPI - General Chief complaint: Extremity Injury, Lower Stated complaint: R Hip Pain Time Seen by Provider: 03/14/23 06:57 Source: patient, EMS, RN notes reviewed Mode of arrival: EMS Limitations: physical limitation - History of Present Illness Initial comments: 77-year-old female presents emergency department complaint of fall, right hip p ain. She states she has been suffering with worsening hip pain in which she has been trying to manage and has been dealing with orthopedics. Patient states that she was scheduled for an aspiration of her right hip yesterday but states that she had a hip dislocation. She has been helped by family today to the bathroom and states that she fell she had worsening symptoms. Patient states things are becoming very difficult as it has been harder to ambulate. Family is concerned about her wellbeing at home. - Related Data Home Medications Medication Instructions Recorded Confirmed Gabapentin [Neurontin] 800 mg PO QID@06,11,16,01/19/14 03/14/23 Levothyroxine Sodium [Levoxyl] 175 mcg PO DAILY@0600 01/19/14 03/14/23 Primidone [Mysoline] 50 mg PO TID 01/19/14 03/14/23 Desvenlafaxine [Pristiq ER] 100 mg PO DAILY@0600 07/11/22 03/14/23 Folic Acid 1 mg PO DAILY@0600 07/11/22 03/14/23 Pravastatin Sodium [Pravachol] 20 mg PO DAILY@0600 07/11/22 03/14/23 Topiramate [Topamax] 50 mg PO TID 07/11/22 03/14/23 oxyCODONE HCL [oxyCODONE HCL (IR)] 15 mg PO BID@1100,2300 07/11/22 03/14/23 oxyCODONE HCL [oxyCODONE HCL (IR)] 30 mg PO BID@0600,1600 07/11/22 03/14/23 Metoprolol Tartrate 25 mg PO BID 03/06/23 03/14/23 Apixaban [Eliquis] 10 mg PO DAILY@1600 03/14/23 03/14/23 Atenolol/Chlorthalidone 1 tab PO DAILY 03/14/23 03/14/23 [Atenolol-Chlorthalidone 100-25] metHOTREXate sodium 17.5 mg PO TH 03/14/23 03/14/23 Allergies Allergy/AdvReac Type Severity Reaction Status Date / Time ibuprofen [From Motrin] Allergy Anaphylaxis Verified 03/14/23 06:56 pneumococcal vaccine Allergy Nausea & Verified 03/14/23 06:56 Vomiting Review of Systems ROS Statement: Those systems with pertinent positive or pertinent negative responses have been documented in the HPI. ROS Other: All systems not noted in ROS Statement are negative. Past Medical History Past Medical History: Hypertension, Osteoarthritis (OA) Additional Past Medical History / Comment(s): spinal stenosis, arthritis, essential tremors History of Any Multi-Drug Resistant Organisms: None Reported Past Surgical History: Adenoidectomy, Appendectomy, Hysterectomy, Tonsillectomy Additional Past Surgical History / Comment(s): bilateral hip replacement. bowel resection Past Anesthesia/Blood Transfusion Reactions: No Reported Reaction Past Psychological History: No Psychological Hx Reported Smoking Status: Former smoker Past Alcohol Use History: Occasional Past Drug Use History: None Reported - Past Family History Mother Family Medical History: No Reported History General Exam General appearance: alert, in no apparent distress Head exam: Present: atraumatic, normocephalic, normal inspection Eye exam: Present: normal appearance, PERRL, EOMI. Absent: scleral icterus, conjunctival injection, periorbital swelling ENT exam: Present: normal exam, normal oropharynx, mucous membranes moist Neck exam: Present: normal inspection, full ROM. Absent: tenderness, meningismus, lymphadenopathy Respiratory exam: Present: normal lung sounds bilaterally. Absent: respiratory distress, wheezes, rales, rhonchi, stridor Cardiovascular Exam: Present: regular rate, normal rhythm, normal heart sounds. Absent: systolic murmur, diastolic murmur, rubs, gallop, clicks GI/Abdominal exam: Present: soft, normal bowel sounds. Absent: distended, tenderness, guarding, rebound, rigid Extremities exam: Present: other (Right hip tenderness, pain with range of motion neurovascular intact there is no shortening or rotation noted) Neurological exam: Present: alert Course Vital Signs 03/14/23 03/14/23 03/14/23 06:53 09:30 11:00 Temperature 98.3 F 98.2 F 98 F Pulse Rate 98 82 69 Respiratory 18 16 18 Rate Blood Pressure 130/73 122/71 119/64 O2 Sat by Pulse 96 97 96 Oximetry 03/14/23 12:43 Temperature 98.2 F Pulse Rate 69 Respiratory 18 Rate Blood Pressure 121/64 O2 Sat by Pulse 96 Oximetry Medical Decision Making - Medical Decision Making Was pt. sent in by a medical professional or institution ([facility], [employer]LE ASSEMBLER, urgent care, hospital, or long term...) When possible be specific @ -No Did you speak to anyone other than the patient for history (EMS, parent, family, police, friend...)? What history was obtained from this source @ -No Did you review nursing and triage notes (agree or disagree)? Why? @ -I reviewed and agree with nursing and triage notes Were old charts reviewed (outside hosp., previous admission, EMS record, old EKG, old radiological studies, urgent care reports/EKG's, long term records)? Report findings @ -No old charts were reviewed Differential Diagnosis (chest pain, altered mental status, abdominal pain women, abdominal pain men, vaginal bleeding, weakness, fever, dyspnea, syncope, headache, dizziness, GI bleed, back pain, seizure, CVA, palpatations, mental health, musculoskeletal)? @ -[Hip pain dislocation, fracture EKG interpreted by me (3pts min.). @ -None X-rays interpreted by me (1pt min.). @ -[X-ray shows no evidence of hip fracture or dislocation there is possible loosening hardware on x-ray. CT interpreted by me (1pt min.). @ -[None done U/S interpreted by me (1pt. min.). @ -None done What testing was considered but not performed or refused? (CT, X-rays, U/S, labs)? Why? @ -None What meds were considered but not given or refused? Why? @ -None Did you discuss the management of the patient with other professionals (professionals i.e. [facility]aza, BUCKLE ASSEMBLER, lab, RT, psych nurse, social sciences chair, artist's manager, teacher, first officer, case advocate)? Give summary @ -[Dr. Mcghee in hematology who came and evaluate the patient discussed with family that patient needs to be seen at surgery center to secondary to complex hip including concern for infection, loosening of hardware and requiring significant revision Was smoking cessation discussed for >3mins.? @ -No Was critical care preformed (if so, how long)? @ -No Were there social determinants of health that impacted care today? How? (Homelessness, low income, unemployed, alcoholism, drug addiction, transportation, low edu. Level, literacy, decrease access to med. care, [facility], rehab)? @ -No Was there de-escalation of care discussed even if they declined (Discuss DNR or withdrawal of care, Hospice)? DNR status @ -No What co-morbidities impacted this encounter? (DM, HTN, Smoking, COPD, CAD, Cancer, CVA, ARF, Chemo, Hep., AIDS, mental health diagnosis, sleep apnea, morbid obesity)? @ -None Was patient admitted / discharged? Hospital course, mention meds given and route, prescriptions, significant lab abnormalities, going to OR and other [facility] info. @ -[Transferred to [facility]. I did discuss the case with orthopedic surgeon Dr. Cortez who accepts transfer to [facility] for further evaluation. Patient was given IV antibiotics for concern of possible infected prosthesis. I did discuss this with the family who was informed that they may not have emergent surgery they will be admitted for further evaluation and treatment. Undiagnosed new problem with uncertain prognosis? @ -No Drug Therapy requiring intensive monitoring for toxicity (Heparin, Nitro, Insulin, Cardizem)? @ -No Were any procedures done? @ -No Diagnosis/symptom? @ -[Right hip pain intractable, prostatic hardware loosening, infected prosthesis Acute, or Chronic, or Acute on Chronic? @ -Acute Uncomplicated (without systemic symptoms) or Complicated (systemic symptoms)? @ -[complicated Side effects of treatment? @ -[No Exacerbation, Progression, or Severe Exacerbation? @ -No Poses a threat to life or bodily function? How? (Chest pain, USA, CA, pneumonia, PE, COPD, DKA, ARF, appy, cholecystitis, CVA, Diverticulitis, Homicidal, Suicidal, threat to staff... and all critical care pts) @ -No - Lab Data Result diagrams: 03/14/23 08:25 03/14/23 08:25 Lab Results 03/14/23 03/14/23 Range/Units 08:25 08:25 WBC 3.7 L (3.8-10.6) k/uL RBC 3.97 (3.80-5.40) m/uL Hgb 11.4 (11.4-16.0) gm/dL Hct 34.1 (34.0-46.0) % MCV 85.9 (80.0-100.0) fL MCH 28.7 (25.0-35.0) pg MCHC 33.4 (31.0-37.0) g/dL RDW 14.7 (11.5-15.5) % Plt Count 287 (150-450) k/uL MPV 7.2 Neutrophils % 88 % Lymphocytes % 5 % Monocytes % 5 % Eosinophils % 1 % Basophils % 1 % Neutrophils # 3.3 (1.3-7.7) k/uL Lymphocytes # 0.2 L (1.0-4.8) k/uL Monocytes # 0.2 (0-1.0) k/uL Eosinophils # 0.0 (0-0.7) k/uL Basophils # 0.0 (0-0.2) k/uL ESR 115 H (0-30) mm/Hr Sodium 137 (137-145) mmol/L Potassium 4.1 (3.5-5.1) mmol/L Chloride 101 (98-107) mmol/L Carbon Dioxide 31 H (22-30) mmol/L Anion Gap 5 mmol/L BUN 11 (7-17) mg/dL Creatinine 0.46 L (0.52-1.04) mg/dL Est GFR (CKD-EPI)AfAm >90 (>60 ml/min/1.73 sqM) Est GFR (CKD-EPI)NonAf >90 (>60 ml/min/1.73 sqM) Glucose 131 H (74-99) mg/dL Calcium 8.5 (8.4-10.2) mg/dL Total Bilirubin 0.3 (0.2-1.3) mg/dL AST 15 (14-36) U/L ALT 13 (4-34) U/L Alkaline Phosphatase 123 (38-126) U/L C-Reactive Protein 15.2 H (<1.0) mg/dL Total Protein 6.1 L (6.3-8.2) g/dL Albumin 3.1 L (3.5-5.0) g/dL Disposition 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 Specs Out of Hospital Transfer - Requested Specifics: Other Emergency Center ([facility])
[2023-03-14 09:54] LABS: ALT 13 U/L (4-34); AST 15 U/L (14-36); African American GFR (CKD) >90 (>60 ml/min/1.73 sqM); Albumin 3.1 g/dL (3.5-5.0); Alkaline Phosphatase 123 U/L (38-126); Anion Gap 5 mmol/L; Blood Urea Nitrogen 11 mg/dL (7-17); Calcium 8.5 mg/dL (8.4-10.2); Carbon Dioxide 31 mmol/L (22-30); Chloride 101 mmol/L (98-107); Glucose 131 mg/dL (74-99); Non-African American GFR(CKD) >90 (>60 ml/min/1.73 sqM); Sodium 137 mmol/L (137-145); Total Bilirubin 0.3 mg/dL (0.2-1.3); Total Protein 6.1 g/dL (6.3-8.2)
[2023-03-14 10:01] VITALS: TEMP 98.2
[2023-03-14 10:04] LABS: Potassium 4.1 mmol/L (3.5-5.1)
[2023-03-14] MEDS ORDERED: VANCOMYCIN IV PER PHARMACY 1 EACH MISC MISCELLANE PRN (10:56)
[2023-03-14 11:54] LABS: C Reactive Protein 15.2 mg/dL (<1.0)
[2023-03-14] MEDS: VANCOMYCIN 1,500 MG in SODIUM CHLORIDE 0.9% 500 ML 500 ML IVPB STA (12:34)
[2023-03-14 12:53] VITALS: BP 121/64; PULSE 69; RESP 18
[2023-03-14 13:02] LABS: Erythrocyte Sedimentation Rate 115 mm/Hr (0-30)
[2023-03-14] MEDS: oxyCODONE ER 15 MG TAB.ER.12H PO STA (13:02)
[2023-03-14] MEDS ORDERED: VANCOMYCIN 1,250 MG in SODIUM CHLORIDE 0.9% 250 ML IVPB SCH (21:00)
== END 2023-03-14 15:00 | disposition other institution (70) ==
LOC: EC 06:50
DX: T84.51XA Infection and inflammatory reaction due to internal right hip prosthesis, initial encounter (principal); I10 Essential (primary) hypertension; Z87.891 Personal history of nicotine dependence; Z88.6 Allergy status to analgesic agent; Z88.7 Allergy status to serum and vaccine
CPT/HCPCS: 36415; 80053; 85652; 85025; 86140; 87040; 73502; 99285; 96365; 96375 ×2; 96376; J3370; J0696; J1170

== ENCOUNTER 2023-04-04 17:33 | Emergency (ER) | payer MEDICARE ==
[2023-04-04] MEDS: HYDROmorphone 0.5 MG/0.5 ML SYRINGE IVP STA (18:47)
--- NOTE | 2023-04-04 19:08 | ED ---
Extremity Problem HPI - General Chief complaint: Extremity Problem,Nontraumatic Stated complaint: General pain and weakness Time Seen by Provider: 04/04/23 17:52 Source: EMS Mode of arrival: EMS - History of Present Illness Initial comments: 77-year-old female brought in via EMS from [facility] for pain control. According to EMS report patient is at [facility] for rehab after her hip surgery. Prior to this surgery the patient was on 30 mg oxycodone twice a day and 50 mg oxycodone 3 times a day for many years for chronic pain. Documentation indicates that the provider at [facility] will only prescribe 20 mg of oxycodone every 6 hours and the patient is having difficulty controlling her pain. She has no new injury or trauma. No fever, chills, redness, swelling, de formity. No abdominal pain. - Related Data Home Medications Medication Instructions Recorded Confirmed Gabapentin [Neurontin] 800 mg PO QID@06,11,16,23 01/19/14 03/14/23 Levothyroxine Sodium [Levoxyl] 175 mcg PO DAILY@0600 01/19/14 03/14/23 Primidone [Mysoline] 50 mg PO TID 01/19/14 03/14/23 Desvenlafaxine [Pristiq ER] 100 mg PO DAILY@0600 07/11/22 03/14/23 Folic Acid 1 mg PO DAILY@0600 07/11/22 03/14/23 Pravastatin Sodium [Pravachol] 20 mg PO DAILY@0600 07/11/22 03/14/23 Topiramate [Topamax] 50 mg PO TID 07/11/22 03/14/23 oxyCODONE HCL [oxyCODONE HCL (IR)] 15 mg PO BID@1100,2300 07/11/22 03/14/23 oxyCODONE HCL [oxyCODONE HCL (IR)] 30 mg PO BID@0600,1600 07/11/22 03/14/23 Metoprolol Tartrate 25 mg PO BID 03/06/23 03/14/23 Apixaban [Eliquis] 10 mg PO DAILY@1600 03/14/23 03/14/23 Atenolol/Chlorthalidone 1 tab PO DAILY 03/14/23 03/14/23 [Atenolol-Chlorthalidone 100-25] metHOTREXate sodium 17.5 mg PO TH 03/14/23 03/14/23 Allergies Allergy/AdvReac Type Severity Reaction Status Date / Time ibuprofen [From Motrin] Allergy Anaphylaxis Verified 03/14/23 06:56 pneumococcal vaccine Allergy Nausea & Verified 03/14/23 06:56 Vomiting Review of Systems ROS Statement: Those systems with pertinent positive or pertinent negative responses have been documented in the HPI. ROS Other: All systems not noted in ROS Statement are negative. Past Medical History Past Medical History: Hypertension, Osteoarthritis (OA) Additional Past Medical History / Comment(s): spinal stenosis, arthritis, essential tremors History of Any Multi-Drug Resistant Organisms: None Reported Past Surgical History: Adenoidectomy, Appendectomy, Hysterectomy, Joint Replacement, Orthopedic Surgery, Tonsillectomy Additional Past Surgical History / Comment(s): bilateral hip replacement. bowel resection Past Anesthesia/Blood Transfusion Reactions: No Reported Reaction Past Psychological History: No Psychological Hx Reported Smoking Status: Former smoker Past Alcohol Use History: Occasional Past Drug Use History: None Reported - Past Family History Mother Family Medical History: No Reported History General Exam General appearance: alert, in distress (in pain) Head exam: Present: atraumatic, normocephalic Eye exam: Present: normal appearance Neck exam: Present: normal inspection Respiratory exam: Present: normal lung sounds bilaterally. Absent: respiratory distress, wheezes, rales, rhonchi, stridor Cardiovascular Exam: Present: regular rate, normal rhythm, normal heart sounds. Absent: systolic murmur, diastolic murmur, rubs, gallop, clicks Right Hip exam: Present: normal inspection (well healing scar noted), tenderness. Absent: swelling, ecchymosis, deformity, erythema Neurological exam: Present: alert, oriented X3 Psychiatric exam: Present: normal affect, normal mood Skin exam: Present: warm, dry Course Vital Signs 04/04/23 04/04/23 04/04/23 17:36 19:46 21:22 Pulse Rate 76 74 61 Respiratory 20 16 16 Rate Blood Pressure 141/75 124/63 129/57 O2 Sat by Pulse 99 96 95 Oximetry 04/04/23 21:33 Pulse Rate 66 Respiratory 16 Rate Blood Pressure 124/64 O2 Sat by Pulse 98 Oximetry Medical Decision Making - Medical Decision Making Was pt. sent in by a medical professional or institution (Dr., PA, TOW OPERATOR, urgent care, hospital, or [place] [facility]...) When possible be specific @ -longterm Did you speak to anyone other than the patient for history (EMS, parent, family, police, friend...)? What history was obtained from this source @ -No Did you review nursing and triage notes (agree or disagree)? Why? @ -I reviewed and agree with nursing and triage notes Were old charts reviewed (outside hosp., previous admission, EMS record, old EKG, old radiological studies, urgent care reports/EKG's, [place] [facility] records)? Report findings @ -No old charts were reviewed Differential Diagnosis (chest pain, altered mental status, abdominal pain women, abdominal pain men, vaginal bleeding, weakness, fever, dyspnea, syncope, headache, dizziness, GI bleed, back pain, seizure, CVA, palpatations, mental health, musculoskeletal)? @ -Differential Musculoskeletal Muscular strain, contusion, ligament sprain, fracture, arthritis, septic arthritis, bursitis, cellulitis, muscle spasm, nerve compression, DVT, arterial occlusion, herpes zoster, electrolyte abnormality, tumor.... This is not meant to be in all inclusive list EKG interpreted by me (3pts min.). @ -As above X-rays interpreted by me (1pt min.). @ -None done CT interpreted by me (1pt min.). @ -None done U/S interpreted by me (1pt. min.). @ -None done What testing was considered but not performed or refused? (CT, X-rays, U/S, labs)? Why? @ -None What meds were considered but not given or refused? Why? @ -None Did you discuss the management of the patient with other professionals (professionals i.e. KUMAR Maza, TOW OPERATOR, lab, RT, psych nurse, social services technician, roof service technician, teacher, public safety officer, pillowcase turner)? Give summary @ -No Was smoking cessation discussed for >3mins.? @ -No Was critical care preformed (if so, how long)? @ -No Were there social determinants of health that impacted care today? How? (Homelessness, low income, unemployed, alcoholism, drug addiction, transportation, low edu. Level, literacy, decrease access to med. care, half-way, rehab)? @ -No Was there de-escalation of care discussed even if they declined (Discuss DNR or withdrawal of care, Hospice)? DNR status @ -No What co-morbidities impacted this encounter? (DM, HTN, Smoking, COPD, CAD, Cancer, CVA, ARF, Chemo, Hep., AIDS, mental health diagnosis, sleep apnea, morbid obesity)? @ -None Was patient admitted / discharged? Hospital course, mention meds given and route, prescriptions, significant lab abnormalities, going to OR and other pertinent info. @ -77-year-old female presenting with chief complaint of uncontrolled right- sided hip pain. Patient has recent history of surgery to the hip, she is currently at [facility] for rehab. Her pain has not been under control since being at the [place] [facility]. Patient was previously on daily high- dose pain medication prior to the surgery, she is now prescribed less oxycodone than what she was taking prior to her surgery. I am told that the provider at the [place] [facility] will not prescribe any additional pain medication. Patient has had no new injury or trauma. On inspection there is no evidence for septic joint, no erythema, swelling, warmth, deformity, discharge. There is a well- healing surgical scar. Patient is given pain medication, on reassessment her pain is adequately controlled. She will be discharged back to her [place] [facility]. Follow-up with PCP. Report back to ER with any new or worsening symptoms. Discussed return parameters and answered all questions. Patient conveyed verbal understanding and agreed to the plan. I discussed this case in detail with my attending Dr. Stauffer Undiagnosed new problem with uncertain prognosis? @ -No Drug Therapy requiring intensive monitoring for toxicity (Heparin, Nitro, Insulin, Cardizem)? @ -No Were any procedures done? @ -No Diagnosis/symptom? @ -Hip pain, opioid withdrawal Acute, or Chronic, or Acute on Chronic? @ -Acute Uncomplicated (without systemic symptoms) or Complicated (systemic symptoms)? @ -Uncomplicated Side effects of treatment? @ -No Exacerbation, Progression, or Severe Exacerbation? @ -No Poses a threat to life or bodily function? How? (Chest pain, [place], [place], pneumonia, PE, COPD, DKA, ARF, appy, cholecystitis, CVA, Diverticulitis, Homicidal, Suicidal, threat to staff... and all critical care pts) @ -No Disposition Clinical Impression: Hip pain Disposition: HOME SELF-CARE Condition: Good Instructions (If sedation given, give patient instructions): Hip Pain (ED) Additional Instructions: Follow-up with PCP. Report back to ER with any new or worsening symptoms. Is patient prescribed a controlled substance at d/c from ED?: No Referrals: Edgardo Wadsworth DO [Primary Care Provider] - 1-2 days Time of Disposition: 19:08
[2023-04-04 19:55] VITALS: RESP 16
[2023-04-04] MEDS: oxyCODONE-APAP 10-325MG 1 EACH TAB PO PRN (21:31)
[2023-04-04 21:46] VITALS: BP 124/64; PULSE 66
== END 2023-04-04 21:40 | disposition home or self-care (01) ==
LOC: EC 17:33
DX: M25.551 Pain in right hip (principal); F11.23 Opioid dependence with withdrawal; I10 Essential (primary) hypertension; M19.90 Unspecified osteoarthritis, unspecified site; Z79.899 Other long term (current) drug therapy; Z88.6 Allergy status to analgesic agent; Z88.7 Allergy status to serum and vaccine; Z87.891 Personal history of nicotine dependence
CPT/HCPCS: 99284; 96374; J1170